=== PATIENT | female | born 1965 | race Caucasian/White ===

== ENCOUNTER → 2018-01-11 02:51 | Outpatient (CLI) | payer OTHER, SELFPAY ==
[2018-01-11 11:28] LABS: Anion Gap 5.8 mmol/L (3-11); BUN 12 mg/dL (7-18); CO2 30.2 mmol/L (21.0-32.0); CREATININE 0.74 mg/dL (0.55-1.02); Calcium 9.2 mg/dL (8.5-10.1); Chloride 104 mmol/L (98-107); Cholesterol 250 mg/dL (50-200); Glucose 95 mg/dL (70-100); HDL Cholesterol 60 mg/dL (40-60); LDL CHOLESTEROL 169 mg/dL (<100); Sodium 140 mmol/L (136-145); Triglyceride 134 mg/dL (30-150)
== END ==
PROVIDERS: PCP Family Medicine; Visit Provider Family Medicine
DX: Z00.00 Encounter for general adult medical examination without abnormal findings (principal); Z13.220 Encounter for screening for lipoid disorders; Z13.228 Encounter for screening for other metabolic disorders
CPT/HCPCS: 36415; 80048; 80061; 83721

== ENCOUNTER 2019-01-19 08:43 | Outpatient (CLI) | payer OTHER, SELFPAY ==
[2019-01-19 11:44] LABS: HCT 41.3 % (36.0-46.0); HGB 14.2 g/dL (12.0-15.5); Mean Corp. HGB Concentration 34.4 g/dL (32.0-36.0); Mean Corpuscular Hemoglobin 31.6 pg (27.0-33.0); Mean Corpuscular Volume 91.8 fL (80-95); Mean Platelet Volume 9.5 fL (8.0-11.0); Platelet Count 398 x1000/uL (130-400); RBC Distribution Width 15.3 % (11.7-14.6); White Blood Cell Count 12.62 k/cumm (4.4-10.8)
[2019-01-19 12:45] LABS: Anion Gap 10.3 mmol/L (3-11); BUN 13 mg/dL (7-18); CO2 24.7 mmol/L (21.0-32.0); CREATININE 0.71 mg/dL (0.55-1.02); Chloride 105 mmol/L (98-107); Glucose 77 mg/dL (70-100); Potassium 4.6 mmol/L (3.5-5.1); Sodium 140 mmol/L (136-145)
== END 2019-01-19 09:03 ==
PROVIDERS: PCP Family Medicine; Visit Provider Family Medicine
DX: Z79.1 Long term (current) use of non-steroidal anti-inflammatories (NSAID) (principal)
CPT/HCPCS: 36415; 80048; 85027

== ENCOUNTER 2019-04-06 09:13 | Day surgery (SDC) | payer OTHER, SELFPAY ==
[2019-04-06 09:20] VITALS: BP 133/86; PULSE 99; RESP 18; TEMP 36.6; O2SAT 97
[2019-04-06] MEDS: Lactated Ringers 1,000 ML 80 ML IV (09:58)
--- NOTE | 2019-04-06 10:56 | W.PM.DSUDISC ---
Discharge Plan Disposition Patient Disposition: HOME Condition: Good Discharge Details Reason For Visit: Colonoscopy Attending Provider: Sri Ceja Primary Care Provider: Tommy Brooke Home Meds and New Rx's Prescriptions: Discontinued polyethylene glycol 3350 17 gram/dose powder 238 g PO ONCE Qty: 238 RF: 0 bisacodyl [Dulcolax (bisacodyl)] 5 mg tablet,delayed release (DR/EC) 5 mg PO ONCE Qty: 4 RF: 0 No Action ibuprofen [Ibuprofen IB] 200 mg tablet 800 mg PO TID PRNRF: 0 venlafaxine 150 mg capsule,extended release 24hr 150 mg PO DAILY Qty: 90 RF: 4 clonazepam 0.5 mg tablet 0.5 mg PO TID Qty: 90 RF: 2 Discharge Instructions Additional Instructions: Findings: One small polyp was removed. My office will contact you with biopsy results. Follow up: Plan for a colonoscopy in 5 years. Please call if you develop: fevers >101.5 Nausea or Vomiting Abdominal pain that is not transient DAY SURGERY UNIT POST COLONOSCOPY INSTRUCTIONS 1. Because there will be medication in your system for the next 24 hours, you may feel a little sleepy. Your coordination will be affected. Therefore: a. Do not drive or operate dangerous equipment for 24 hours. b. Do not drink alcohol beverages for 24 hours (not even beer). c. Plan to go home and rest for the day. 2. Generally there are no restrictions on your activity after a day or so has gone by, but you may feel a bit fatigued for a few days. 3 After you arrive home you may have a light meal and return to a normal diet as you can tolerate it without feeling sick to your stomach. 4. After surgery, you may feel pain or discomfort. This should be only transient, but if it persists please contact your doctor. 5. If there are any questions regarding the findings of your procedure, please feel free to contact your doctor. 6. If you are unable to contact your doctor with a problem, contact the hospital at [phone]. 7. Continue all your regular medications unless directed otherwise. I understand the above instructions and have no questions. Signature of Patient or Responsible Adult Escort Date/Time Name of Responsible Adult Escort Signature of Nurse Date/Time Activity:: Activity as Tolerated Diet:: As Tolerated Discharge Orders Discharge Orders: Discharge Order (Routine); Ordered 04/06/19 Ordered By: Sri Ceja DS: Diagnosis Discharge Diagnosis (1) Colon polyp: Status: Acute (2) Diverticulosis: Status: Acute
--- NOTE | 2019-04-06 11:51 | BOWEL_PTH ---
PATIENT: Belem Kebede LOC: [facility] U#:[id number] AGE/SX: 54/F ROOM: RE04/06/[address]: Sri Ceja MD : [id number] BED: DIS: 04/06/2019 SPEC #: [id number] RECD: 04/06/19 12:56 STATUS: RONAK RE #: [id number] DEV: 04/06/19 11:[address]: Sri Ceja DEPT: Surgical Specimen RECD BY: Felicitas Carrasco ENTERED: 04/06/19 12:57 SP TYPE: Bowel OTHR DR: Tommy Brooke MD Tissues: 1 - BIOPSY BOWEL Procedures: GROSS AND MICRO LEVEL 4 Comments: [id number]
--- NOTE | 2019-04-06 12:13 | COLE_ITS ---
DATE OF PROCEDURE: April 06, 2019 PREOPERATIVE DIAGNOSIS: Screening. POSTOPERATIVE DIAGNOSIS: 1. Diverticulosis. 2. Sigmoid colon polyp. PROCEDURE: Colonoscopy with polypectomy. SURGEON: Sri Ceja M.D. ANESTHESIA: General. INDICATIONS: This is a 54-year-old woman who presents for her first screening colonoscopy. She is a symptomatic and has no close relatives with colon cancer. PROCEDURE: She was placed in the left Galloway position. Propofol was titrated to sedation. Digital re ctal examination revealed no abnormalities. The scope was advanced to the cecum without difficulty. Her prep was excellent. The ileocecal valve and appendiceal orifice were clearly identified. The s cope was slowly withdrawn with no abnormalities seen within the ascending, transverse or descending c olon. There was scattered diverticular change in the sigmoid region. At 30 cm in the sigmoid colon there was a flat, < 1 cm polyp that was removed with snare polypectomy and retrieved for pathology. A hemostatic clip was applied as a precaution. No other abnormalities were seen throughout the sigmo id colon or rectum, including on retroflex view. It was noted that she had some moderately prominent internal hemorrhoids and external hemorrhoids as well. She tolerated the procedure well and was sta ble to recovery. She will need a colonoscopy again in five years. cc: Tommy Brooke M.D.
[2019-04-06 12:30] VITALS: BP 134/77; PULSE 87; RESP 16; TEMP 36.6; O2SAT 95
== END 2019-04-06 13:10 | disposition home or self-care (01) ==
PROVIDERS: PCP Family Medicine; Visit Provider Surgery
PROC: 0DJD8ZZ Inspection of Lower Intestinal Tract, Via Natural or Artificial Opening Endoscopic (ICD-10-PCS; CPT 45378; principal; 2019-04-06 10:30)
DX: Z12.11 Encounter for screening for malignant neoplasm of colon (principal); K57.30 Diverticulosis of large intestine without perforation or abscess without bleeding; K63.5 Polyp of colon; F17.210 Nicotine dependence, cigarettes, uncomplicated
CPT/HCPCS: 45385; 88305; J2250; J3010

== ENCOUNTER 2019-11-30 08:11 | Outpatient (CLI) | payer OTHER, SELFPAY ==
[2019-12-02 17:43] LABS: COVID-19 RT-PCR Result NEGATIVE (Negative)
== END 2019-11-30 08:31 ==
PROVIDERS: PCP Family Medicine; Visit Provider Student in an Organized Health Care Education/Training Program
DX: Z11.59 Encounter for screening for other viral diseases (principal); G57.63 Lesion of plantar nerve, bilateral lower limbs
CPT/HCPCS: U0003

== ENCOUNTER 2019-12-04 06:15 | Day surgery (SDC) | payer OTHER, SELFPAY ==
[2019-12-04 06:38] VITALS: BP 115/72; PULSE 77; RESP 18; TEMP 36.7; O2SAT 95
[2019-12-04] MEDS: Lactated Ringers 1,000 ML 80 ML IV (07:00)
--- NOTE | 2019-12-04 07:13 | PDOC.DSDIS_ITS ---
Discharge Plan Disposition Patient Disposition: HOME Condition: Good Discharge Details Reason For Visit: Bilateral Orozco Neuroma Attending Provider: Lito Biswas Primary Care Provider: Tommy Brooke Home Meds and New Rx's Prescriptions: New hydrocodone-acetaminophen 5-325 mg tablet 1 tab PO Q4H PRN (Reason: pain) Qty: 12 RF: 0 aspirin 81 mg tablet,delayed release (DR/EC) 81 mg PO BID Qty: 60 RF: 0 acetaminophen 500 mg tablet 500 mg PO Q6H PRN PRN (Reason: pain) Qty: 90 RF: 3 docusate sodium [Colace] 100 mg capsule 100 mg PO BID PRNQty: 10 RF: 0 ibuprofen 600 mg tablet 600 mg PO TID PRNQty: 90 RF: 3 Continued hydroxyzine HCl 25 mg tablet 50 mg PO TID PRN (Reason: anxiety) Qty: 150 RF: 4 baclofen 10 mg tablet 20 mg PO TID Qty: 150 RF: 4 disulfiram 250 mg tablet 250 mg PO DAILY Qty: 30 RF: 4 venlafaxine 150 mg capsule,extended release 24hr 150 mg PO DAILY Qty: 90 RF: 4 venlafaxine 75 mg capsule,extended release 24hr 75 mg PO DAILY Qty: 90 RF: 4 clonazepam 0.5 mg tablet 0.5 mg PO TID Qty: 90 RF: 2 trazodone 50 mg tablet 50 mg PO QHS PRN (Reason: sleep) Qty: 30 RF: 2 Discontinued ibuprofen [Ibuprofen IB] 200 mg tablet 800 mg PO TID PRNRF: 0 Discharge Instructions Additional Instructions: Activity: You may weight bear as tolerated. You should keep the leg elevated as much as possible. You need to wear the post-op shoe when you are up and mobilizing, but may remove it when not and move your foot, ankle, and toes as tolerated. Use crutches for support and pain relief the first few days. Dressings: You should keep the initial dressing on for at least 3 days. After 3 days, you may remove it and get the wound wet in the shower. You can put a large bandaid back on this wound or leave it uncovered. The sutures are buried in the skin. Medications: - You should take Tylenol and Ibuprofen around the clock for baseline pain. - You have been prescribed a stronger narcotic, Hydrocodone, for breakthrough pain. 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
[2019-12-04] MEDS: ceFAZolin 2 GM/50 ML BAG IVPB (07:23)
[2019-12-04 09:10] VITALS: BP 113/74; PULSE 75; RESP 16; TEMP 36.5; O2SAT 95
[2019-12-04] MEDS: HYDROcodone 5/Acetaminophen 325 TAB PO (09:10)
--- NOTE | 2019-12-04 10:35 | ROE_ITS ---
Date of service: 12/04/19 Time of Service: 08:35 Operative Note Operative Note DATE OF PROCEDURE: 12/04/19 PRE-OP DIAGNOSIS: Bilateral Orozco's Neuroma POST-OP DIAGNOSIS: same PROCEDURE: Bilateral 3rd interspace neurectomy with IM ligament release for Orozco's Neuroma SURGEON: Lito Biswas ANESTHESIA: spinal ESTIMATED BLOOD LOSS: 5 PATHOLOGY: none sent TOURNIQUET TIME: 0 COMPLICATIONS: None Patient was transported to: same day Patient's condition: stable Indications: Belem is a 54yo female who I have seen for persistent pain of the 3rd interspace of the forefoot of both feet radiating into the 3rd and 4th toes. She has had multiple injections and other conservative treatements in the past. Given the failure of the conservative options, I recommended surgical treatment. I discussed the technical details of the surgery. I reviewed the risks such as bleeding, infection, pain, stiffness, persistent numbness, neuroma, pain. I discussed the necessary time for rehabilitation. Despite these risks, Belem agreed to proceed. Findings: There is notable swelling of the common digital nerve the third interspace. No classic, rounded neuroma was appreciated. There was bursitis and inflammation seen around the nerve and around the intermetatarsal ligament. The ligament was transected and the nerve was removed. Procedure Description: Belem was greeted in the preoperative area. Consent was previously reviewed and signed. Once in the operating room, anesthesia was administered. The patient was transferred to the fracture table in the supine position. Belem was positioned in the supine position. All bony prominences were well padded. Arms were placed out to the side, padded, and secured. Prophylactic antibiotics, Cefazolin 2 grams, was given for prophylactic antibiotics. A timeout was performed for safe surgery. Both leg were prepped with Chloraprep. The leg were draped with a bilateral extremity drape. Both wounds were marked within the third interspace, approximate 3 cm, and injected with 0.25% ropivacaine with epinephrine. Starting with the left foot, incision was made through skin. Blunt dissection was done with a finger and with tenotomy scissors making sure to respect any branches of superficial nerves. The space between the third and fourth metatarsal heads was identified and a lamina broadcast transmitter operator was placed. There is some notable inflammatory tissue around this area. The intermetatarsal ligament was identified and then was then incised with a #15 blade. There was notable inflammatory tissue in this area. Once this was released the nerve was visible. There is some noted irritation to the nerve and there is some swelling to the nerve. The nerve was followed to its bifurcation. It was transected distal to the bifurcation. Holding the nerve traction was applied. Plantar branches were resected. The nerve was followed up into the foot and then transected sharply, quite proximal to the metatarsal head. The wound was then thoroughly irrigated. The wound was closed with #4-0 nylon in interrupted fashion. Attention was then turned to the right foot. An incision was made through skin at the third interspace. Blunt dissection was done with a finger and with tenotomy scissors making sure to respect any branches of superficial nerves. The space between the third and fourth metatarsal heads was identified and a lamina broadcast transmitter operator was placed. Once again, there is some inflammatory tissue seen around the intermetatarsal ligament and just proximal to it. The intermetatarsal ligament was identified and then was then incised with a #15 blade. There was notable inflammatory tissue in this area. Once this was released the nerve was visible. There is some noted irritation to the nerve and there is some swelling to the nerve. The nerve was followed to its bifurcation. It was transected distal to the bifurcation. Holding the nerve traction was applied. Plantar branches were resected. The nerve was followed up into the foot and then transected sharply, quite proximal to the metatarsal head. The wound was then thoroughly irrigated. The wound was closed with #4-0 nylon in interrupted fashion. At the end of the case, all counts were correct. Belem tolerated the procedure well without known complication and was taken to the PACU for recovery.
== END 2019-12-04 10:55 | disposition home or self-care (01) ==
PROVIDERS: PCP Family Medicine; Visit Provider Student in an Organized Health Care Education/Training Program
PROC: (CPT 28080; principal; 2019-12-04 07:30)
DX: G57.63 Lesion of plantar nerve, bilateral lower limbs (principal)
CPT/HCPCS: 28080 ×2; E0114; J0690; J1100; J1885; J2001; J2250; J2405; J3010

== ENCOUNTER 2020-05-05 15:45 | Outpatient (CLI) | payer OTHER, SELFPAY ==
--- NOTE | 2020-05-05 14:15 | DI.RAD_ITS ---
EXAM: XR KNEE RT 2V AP,LAT and XR knee LT 3 V CLINICAL HISTORY: R knee pain. TECHNIQUE: 2D digital imaging was performed. COMPARISON: No previous for comparison. FINDINGS: In the right knee, there is periarticular spurring in the medial lateral femoral tibial joints. Ther e is marked narrowing of the lateral patellofemoral joint. There is an osseous density at the anteri or aspect of the joint space which may represent a loose body. No joint effusion is seen the soft ti ssues are unremarkable. No acute fracture or dislocation. In the left knee there is periarticular spurring in the medial and lateral femoral tibial joint. The re is also marked narrowing of the lateral patellofemoral joint. Osteophytes are seen at the posteri or patella. No acute fracture or dislocation. IMPRESSION: Moderately severe degenerative changes of the knees bilaterally. The findings are most marked in the patellofemoral joints. DATA REPOSITORY: RADIATION DOSE DELIVERED:
== END 2020-05-05 16:05 ==
PROVIDERS: PCP Nurse Practitioner; Visit Provider Student in an Organized Health Care Education/Training Program
DX: M17.0 Bilateral primary osteoarthritis of knee (principal)
CPT/HCPCS: 73562; 73560

== ENCOUNTER 2020-05-14 01:04 | Outpatient (CLI) | payer OTHER, SELFPAY ==
--- NOTE | 2020-05-14 07:30 | DI.MAMMO_ITS ---
EXAM: MG MAMMO SCREENING CLINICAL HISTORY: screening,Z12.39 TECHNIQUE: Mammograms were interpreted according to the usual protocol including computer analysis w [employer] CAD system, tomosynthesis and C-view imaging. COMPARISON: FINDINGS: The breasts are of moderate density with fairly symmetrical distribution fibroglandular tissue. No d ominant mass or clumped microcalcification is identified in either breast. The current examination i s compared with previous examinations including August 2017 and there has been no gross interval cueto e in appearance in comparison with the prior studies. IMPRESSION: No specific evidence of malignancy at this time. Routine screening examinations are suggested at yea rly intervals in this age group according to the ACS ACR guidelines. BI-RADS Category 1 - Negative Breast Density - Category B - Scattered areas of fibroglandular density
== END 2020-05-14 01:24 ==
PROVIDERS: PCP Nurse Practitioner; Visit Provider Nurse Practitioner
DX: Z12.31 Encounter for screening mammogram for malignant neoplasm of breast (principal)
CPT/HCPCS: 77063; 77067

== ENCOUNTER 2020-05-26 19:18 | Outpatient (REF) | payer OTHER, SELFPAY ==
[2020-05-27 21:48] LABS: COVID-19 RT-PCR Result NEGATIVE (Negative)
== END 2020-05-26 19:38 ==
LOC: NCHCN 19:18
PROVIDERS: PCP Nurse Practitioner; Visit Provider Nurse Practitioner Family
DX: Z11.52 Encounter for screening for COVID-19 (principal)
CPT/HCPCS: U0003

== ENCOUNTER 2021-01-05 02:07 | Outpatient (CLI) | payer OTHER, SELFPAY ==
[2021-01-05 11:16] LABS: Source Nasal/Nares
[2021-01-05 16:33] LABS: COVID-19 PCR Negative (Negative)
== END 2021-01-05 02:08 | disposition home or self-care (01) ==
LOC: LBO 02:07
PROVIDERS: PCP Nurse Practitioner; Visit Provider Student in an Organized Health Care Education/Training Program
DX: Z20.822 Contact with and (suspected) exposure to COVID-19 (principal); Z01.818 Encounter for other preprocedural examination
CPT/HCPCS: 87635

== ENCOUNTER 2021-01-05 02:47 | Outpatient (CLI) | payer OTHER, SELFPAY ==
[2021-01-05 08:47] LABS: HCT 39.9 % (36.0-46.0); HGB 13.3 g/dL (11.2-15.7); MCH 30.4 pg (27.0-33.0); MCHC 33.3 % (32.0-36.0); MCV 91.1 fL (80-95); MPV 9.2 fL (8.0-11.0); Platelet Count 303 10^3/uL (130-400); RBC 4.38 10^6/uL (3.93-5.22); RDW 13.8 % (11.7-14.6); RDW-SD 46.7 fL; WBC 7.46 10^3/uL (4.4-10.8)
[2021-01-05 09:30] LABS: Anion Gap 7.9 mmol/L (3-11); BUN 11 mg/dL (7-18); CO2 28.1 mmol/L (21.0-32.0); CREATININE 0.8 mg/dL (0.55-1.02); Chloride 106 mmol/L (98-107); Glucose 100 mg/dL (74-106); Potassium 4.6 mmol/L (3.5-5.1); Sodium 142 mmol/L (136-145)
[2021-01-05 09:35] LABS: Calculated LDL 189 mg/dL (<100); Cholesterol 263 mg/dL (<200); HDL Cholesterol 55 mg/dL (40-60); Triglyceride 97 mg/dL (<150)
== END 2021-01-05 02:48 | disposition home or self-care (01) ==
LOC: LBO 02:47
PROVIDERS: Family Medicine; PCP Nurse Practitioner; Visit Provider Student in an Organized Health Care Education/Training Program
DX: M25.561 Pain in right knee (principal); M25.562 Pain in left knee; M17.0 Bilateral primary osteoarthritis of knee; Z01.818 Encounter for other preprocedural examination; Z01.812 Encounter for preprocedural laboratory examination
CPT/HCPCS: 36415; 80048; 80061; 85027

== ENCOUNTER 2021-01-07 05:58 | Day surgery (SDC) | payer OTHER, SELFPAY ==
[2021-01-07] VITALS (10 sets, daily range): BP systolic 112–158; BP diastolic 44–91; PULSE 73–95; RESP 11–18; TEMP 36.2–36.6; O2SAT 93–98; BMI 31.4
[2021-01-07] MEDS: Celecoxib 200 MG CAP 400 MG PO (06:29)
[2021-01-07] MEDS: Lactated Ringers 1,000 ML 80 ML IV (06:30)
[2021-01-07] MEDS: Gabapentin 300 MG CAP PO (06:30)
[2021-01-07] MEDS: Acetaminophen 500 MG TAB 1000 MG PO ×2 (06:30→14:53)
--- NOTE | 2021-01-07 07:00 | W.ANESPRE ---
General Info Date of Service Date Performed: 01/07/21 Height: 5 ft 7 in Weight: 91.2 kg Body Mass Index (BMI): 31.4 Surgical Procedure: Operation Date: 01/07/21 08:00 Proposed Procedures Side Surgeon p Knee Patellofemoral Replacement Bilateral Lito Biswas MD Meds Allergies and Home Medications Allergies Allergy/AdvReac Type Severity Reaction Status Date / Time aspirin AdvReac Intermediate Ringing in Verified 01/07/21 05:54 ears Home Medication Medication Instructions Recorded ibuprofen 600 mg PO TID PRN #90 tab 12/04/19 trazodone 50 mg tablet 100 mg PO QHS PRN #90 tab 09/05/20 clonazepam 0.5 mg tablet 0.5 mg PO BID #60 tab 09/25/20 disulfiram 250 mg tablet 250 mg PO DAILY #90 tab 10/16/20 baclofen 10 mg tablet 20 mg PO TID PRN #90 tab 11/18/20 venlafaxine 150 mg 150 mg PO DAILY #90 tab-cap 12/02/20 capsule,extended release 24 hr venlafaxine 75 mg capsule,extended 75 mg PO DAILY #90 cap 12/02/20 release 24 hr hydroxyzine HCl 25 mg tablet 50 mg PO TID PRN #150 tab 12/25/20 Current Visit Medications: Current Medications Generic Name Dose Route Start Last Admin Trade Name Freq PRN Reason Stop Dose Admin Acetaminophen 1,000 mg 01/07/21 06:00 01/07/21 06:30 Acetaminophen 500 Mg Tab PO 01/07/21 16:00 1,000 mg PREOP MANNY Administration Celecoxib 400 mg 01/07/21 06:00 01/07/21 06:29 Celecoxib 200 Mg Cap PO 01/07/21 16:00 400 mg PREOP MANNY Administration Gabapentin 300 mg 01/07/21 06:00 01/07/21 06:30 Gabapentin 300 Mg Cap PO 01/07/21 16:00 300 mg PREOP MANNY Administration Tranexamic Acid 1,000 mg/ 60 mls @ 360 mls/hr 01/07/21 06:00 Sodium Chloride IVPB 01/07/21 16:00 PREOP MANNY Tranexamic Acid 1,000 mg/ 60 mls @ 360 mls/hr 01/07/21 06:00 Sodium Chloride IVPB 01/07/21 16:00 DIRECTED MANNY Ringer's Solution 1,000 mls @ 80 mls/hr 01/07/21 06:00 01/07/21 06:30 IV 02/05/21 23:59 80 mls/hr INFUSION MANNY Administration Cefazolin Sodium 2,000 mg/ 100 mls @ 200 mls/hr 01/07/21 06:00 Sodium Chloride IVPB 01/07/21 23:59 PREOP MANNY IV Miscellaneous Supplies 1 each 01/07/21 06:00 Iv Access IV 02/05/21 23:59 DIRECTED MANNY Sodium Chloride 0 ml 01/07/21 06:00 Normal Saline Flush 10 Ml Syr IV 02/05/21 23:59 PRN PRN Sodium Chloride 0 ml 01/07/21 06:00 Normal Saline 10 Ml Vial IJ 02/05/21 23:59 DIRECTED PRN Sterile Water 0 ml 01/07/21 06:00 Water,Injection,Sterile 10 Ml Vial IJ 02/05/21 23:59 DIRECTED PRN PFSH Active Problems Active Problems: Problem Status Onset Code Anxiety F41.9 Chronic post-traumatic stress disorder F43.12 Depressive disorder F32.9 Smoker F17.200 Colon polyp K63.5 Diverticulosis K57.90 Hyperlipidemia E78.5 Patellofemoral arthritis of left knee M17.12 Patellofemoral arthritis of right knee M17.11 Status post excision of Orozco's neuroma 12/04/19 Z98.890, Z86.69 Osteoarthritis of right knee M17.11 Osteoarthritis of left knee M17.12 Medical History Medical History (Updated 01/07/21 @ 06:09 by Gege Cox) Anxiety Depression Grade II hemorrhoids (02/10/17) History of alcoholism MERARY on CPAP Osteoarthritis of left knee Osteoarthritis of right knee PTSD (post-traumatic stress disorder) Surgical History Surgical History H/O colonoscopy (~03/2019) Hyperplastic polyp. H/O hysterectomy with oophorectomy History of arthroscopic knee surgery Bilateral Rotator Cuff Repair (~1999) right Status post excision of Orozco's neuroma (12/04/19) Tobacco Smoking/Tobacco Use Status: Current-Occasional Tobacco Type: cigarettes Years smoked: 20 Quit Status: has quit before Second hand exposure: Yes Alcohol Alcohol Intake: former Substance Use Substance use: Never Substance use type: does not use Vital Signs and Lab Results Vital Signs Most Recent Vital Signs in EMR: Most Recent Vital Signs Temp Pulse Resp BP Pulse Ox 36.6 C 84 18 112/44 L 94 01/07/21 06:00 01/07/21 06:00 01/07/21 06:00 01/07/21 06:00 01/07/21 06:00 Lab Results Blood Type / Crossmatch: No Data to Display Complete Blood Count: White Blood Count 7.46 10^3/uL (4.4-10.8) 01/05/21 08:33 01/05/21 Red Blood Count 4.38 10^6/uL (3.93-5.22) 01/05/21 08:01/05/21 Hemoglobin 13.3 g/dL (11.2-15.7) 01/05/21 08:01/05/21 Hematocrit 39.9 % (36.0-46.0) 01/05/21 08:01/05/21 Platelet Count 303 10^3/uL (130-400) 01/05/21 08:33 01/05/21 Complete Metabolic Panel: Sodium Level 142 mmol/L (136-145) 01/05/21 08:33 01/05/21 Potassium Level 4.6 mmol/L (3.5-5.1) 01/05/21 08:33 01/05/21 Chloride Level 106 mmol/L (98-107) 01/05/21 08:33 01/05/21 Carbon Dioxide Level 28.1 mmol/L (21.0-32.0) 01/05/21 08:33 01/05/21 Blood Urea Nitrogen 11 mg/dL (7-18) 01/05/21 08:33 01/05/21 Creatinine 0.8 mg/dL (0.55-1.02) 01/05/21 08:33 01/05/21 Estimated GFR/1.73 m2 >= 60.00 (mL/min/1.73m2) 01/05/21 08:33 01/05/21 Calcium Level 9.0 mg/dL (8.5-10.1) 01/05/21 08:33 01/05/21 Glucose Level 100 mg/dL (74-106) 01/05/21 08:33 01/05/21 Liver Function Panel: No Data to Display Coagulation Panel: No Data to Display Cardiac Panel: No Data to Display Arterial Blood Gas: No Data to Display Venous Blood Gas: No Data to Display Pancreas Panel: No Data to Display Thyroid Panel: No Data to Display Infectious Disease: Coronavirus (COVID-19)(PCR) Negative (Negative) 01/05/21 08:46 01/05/21 Coronavirus 2019 Source Nasal/Nares 01/05/21 08:46 01/05/21 Blood Cultures: No Data to Display Toxicology Panel: No Data to Display Anesthesia Assessment and Plan Anesthesia History Personal History: No History of Anesthesia Complications Family History: No Family History of Anesthesia Complications Exercise Tolerance Exercise Tolerance: Metabolic Equivalents>4 Pertinent Negatives Pertinent Negatives: No Symptoms of GERD, No Major Cardiovascular Symptoms or Complaints and No Major Pulmonary Symptoms or Complaints Cardiac & Pulmonary Exam Cardiac Exam: Normal S1/S2 Heart Sounds Pulmonary Exam: Clear Bilateral Breath Sounds Airway Exam Known Difficult Airway: No Mallampati Class: 2 Mouth Opening: Normal (> 3cm) Thyromental Distance: Greater than 3 cm Neck Range of Motion: Full ROM Neck Circumference: Normal Teeth Condition: Normal Dentition ASA Classification ASA Score: ASA 2 Emergency Case?: No NPO Status NPO Status: NPO Clears >2 hours, Solids >8 hours Anesthesia Plan Resuscitation Status: Full Code Anesthesia Technique: General Anesthesia Airway Planned: LMA Pain Management: Surgeon and patient request nerve block Monitors Used: Standard Monitors
--- NOTE | 2021-01-07 07:23 | PDOC.DSDIS_ITS ---
Documented by User: ANNA Rendon 01/07/21 07:30 Discharge Plan Disposition Patient Disposition: HOME Condition: Stable Discharge Details Reason For Visit: bilateral patellofemoral replacements Attending Provider: Lito Biswas Primary Care Provider: Cristy Augustine Home Meds and New Rx's Prescriptions: New celecoxib [Celebrex] 200 mg capsule 200 mg PO BID Qty: 60 RF: 0 aspirin 81 mg tablet,delayed release (DR/EC) 81 mg PO BID Qty: 60 RF: 0 acetaminophen [Tylenol Extra Strength] 500 mg tablet 500 mg PO Q6H PRNQty: 90 RF: 0 pantoprazole [Protonix] 40 mg tablet,delayed release (DR/EC) 40 mg PO DAILY Qty: 30 RF: 0 gabapentin 300 mg capsule 300 mg PO QHS Qty: 14 RF: 0 oxycodone 5 mg tablet 5 mg PO Q4H PRNQty: 18 RF: 0 Continued trazodone 50 mg tablet 100 mg PO QHS PRN (Reason: sleep) Qty: 90 RF: 3 clonazepam 0.5 mg tablet 0.5 mg PO BID Qty: 60 RF: 5 disulfiram 250 mg tablet 250 mg PO DAILY Qty: 90 RF: 4 baclofen 10 mg tablet 20 mg PO TID PRN (Reason: muscle spasm) Qty: 90 RF: 3 venlafaxine 75 mg capsule,extended release 24hr 75 mg PO DAILY Qty: 90 RF: 4 venlafaxine 150 mg capsule,extended release 24hr 150 mg PO DAILY Qty: 90 RF: 4 hydroxyzine HCl 25 mg tablet 50 mg PO TID PRN (Reason: anxiety) Qty: 150 RF: 4 Discontinued ibuprofen 600 mg tablet 600 mg PO TID PRNQty: 90 RF: 3 Discharge Instructions Additional Instructions: Patellofemoral Replacement Discharge Instructions Activity: The most important activity is to walk. You should try to take short walks a few times a day. It is important that when resting you work on keeping the knee straight. Avoid putting a pillow behind the knee as this will encourage flexion. Work on range of motion exercises as provided by Physical Therapy. - Start outpatient physical therapy within 2 weeks. - You should wear the JOHANN hose on both legs for 2 weeks. You may remove these at night. You may also use any compression sock in place of the JOHANN hose. Dressing: You may remove the Martin wrap on your leg 2 days after your surgery and put on the JOHANN stocking given to you from the hospital. Keep the surgical dressing (underneath the MARTIN wrap) in place for at least one week. After the first week it may be removed and replaced with light gauze and tape or nothing. The wound and dressing may get wet after 3 days but avoid soaking the dressing or otherwise it will need to be changed. Many people prefer covering the dressing with cling wrap (saran wrap) to minimize it from getting soaked. If it gets wet, just pat dry. If it starts to peel off then it will need to be changed. Medications: - You should take Tylenol and anti-inflammatory Celebrex as your primary pain control medications. If the Celebrex is too expensive or not covered, please call the office for another alternative (Advil/Ibuprofen or Naproxen/Aleve) - You have been prescribed a stronger pain medication Oxycodone for breakthrough pain, take as needed as prescribed. - You have also been prescribed a stomach acid reduction agent Pantoprozole to help reduce stomach acid and reflux. - You have been prescribed Gabapentin to take at night for restlessness and nerve pain. - You will be taking Aspirin 81mg twice a day for DVT prevention unless instructed otherwise. - If you have constipation you should take Colace or Miralax (both [id number]). It takes most people 3-4 days to have a bowel movement. Follow-up: 2 weeks If you have any acute concerns or questions, please do not hesitate to contact the office at [phone]. You may contact Dr. Biswas with any questions after hours through the hospital at [phone] or on his cell phone at [phone]. Stand Alone Forms: Anesthesia Discharge Inst., Devaughn ePrez ([facility]) Referrals: Lito Biswas MD [ [facility] STAFF PHYSICIAN] - Equipment/Supplies: Walker Activity:: Activity as Tolerated Remove Dressings/Wound Care:: Do Not Remove Shower/Bathe:: 72 hours Diet:: As Tolerated Discharge Orders Discharge Orders: Discharge Order (Routine); Ordered 01/07/21 Ordered By: Lito Biswas DS: Diagnosis Discharge Diagnosis (1) Patellofemoral arthritis of left knee: Status: Acute (2) Patellofemoral arthritis of right knee: Status: Acute Documented by User: Lito Biswas MD 01/07/21 14:39 Discharge Plan Disposition Patient Disposition: HOME Condition: Stable Discharge Details Reason For Visit: bilateral patellofemoral replacements Attending Provider: Lito Biswas Primary Care Provider: Cristy Augustine Home Meds and New Rx's Prescriptions: New celecoxib [Celebrex] 200 mg capsule 200 mg PO BID Qty: 60 RF: 0 aspirin 81 mg tablet,delayed release (DR/EC) 81 mg PO BID Qty: 60 RF: 0 acetaminophen [Tylenol Extra Strength] 500 mg tablet 500 mg PO Q6H PRNQty: 90 RF: 0 pantoprazole [Protonix] 40 mg tablet,delayed release (DR/EC) 40 mg PO DAILY Qty: 30 RF: 0 gabapentin 300 mg capsule 300 mg PO QHS Qty: 14 RF: 0 oxycodone 5 mg tablet 5 mg PO Q4H PRNQty: 18 RF: 0 Continued trazodone 50 mg tablet 100 mg PO QHS PRN (Reason: sleep) Qty: 90 RF: 3 clonazepam 0.5 mg tablet 0.5 mg PO BID Qty: 60 RF: 5 disulfiram 250 mg tablet 250 mg PO DAILY Qty: 90 RF: 4 baclofen 10 mg tablet 20 mg PO TID PRN (Reason: muscle spasm) Qty: 90 RF: 3 venlafaxine 75 mg capsule,extended release 24hr 75 mg PO DAILY Qty: 90 RF: 4 venlafaxine 150 mg capsule,extended release 24hr 150 mg PO DAILY Qty: 90 RF: 4 hydroxyzine HCl 25 mg tablet 50 mg PO TID PRN (Reason: anxiety) Qty: 150 RF: 4 Discontinued ibuprofen 600 mg tablet 600 mg PO TID PRNQty: 90 RF: 3 Discharge Instructions Additional Instructions: Patellofemoral Replacement Discharge Instructions Activity: The most important activity is to walk. You should try to take short walks a few times a day. It is important that when resting you work on keeping the knee straight. Avoid putting a pillow behind the knee as this will encourage flexion. Work on range of motion exercises as provided by Physical Therapy. - Start outpatient physical therapy within 2 weeks. - You should wear the JOHANN hose on both legs for 2 weeks. You may remove these a t night. You may also use any compression sock in place of the JOHANN hose. Dressing: You may remove the Martin wrap on your leg 2 days after your surgery and put on the JOHANN stocking given to you from the hospital. Keep the surgical dressing (underneath the MARTIN wrap) in place for at least one week. After the first week it may be removed and replaced with light gauze and tape or nothing. The wound and dressing may get wet after 3 days but avoid soaking the dressing or otherwise it will need to be changed. Many people prefer covering the dressing with cling wrap (saran wrap) to minimize it from getting soaked. If it gets wet, just pat dry. If it starts to peel off then it will need to be changed. Medications: - You should take Tylenol and anti-inflammatory Celebrex as your primary pain control medications. If the Celebrex is too expensive or not covered, please call the office for another alternative (Advil/Ibuprofen or Naproxen/Aleve) - You have been prescribed a stronger pain medication Oxycodone for breakthrough pain, take as needed as prescribed. - You have also been prescribed a stomach acid reduction agent Pantoprozole to help reduce stomach acid and reflux. - You have been prescribed Gabapentin to take at night for restlessness and nerve pain. - You will be taking Aspirin 81mg twice a day for DVT prevention unless instruc johann otherwise. - If you have constipation you should take Colace or Miralax (both [id number]). It takes most people 3-4 days to have a bowel movement. Follow-up: 2 weeks If you have any acute concerns or questions, please do not hesitate to contact the office at [phone]. You may contact Dr. Biswas with any questions after hours through the hospital at [phone] or on his cell phone at [phone]. Stand Alone Forms: Anesthesia Discharge Inst., Devaughn Perez ([facility]) Referrals: Lito Biswas MD [ [facility] STAFF PHYSICIAN] - Equipment/Supplies: Walker Activity:: Activity as Tolerated Remove Dressings/Wound Care:: Do Not Remove Shower/Bathe:: 72 hours Diet:: As Tolerated Discharge Orders Discharge Orders: Discharge Order (Routine); Ordered 01/07/21 Ordered By: Lito Biswas
[2021-01-07] MEDS: ceFAZolin 2,000 MG in Normal Saline 100 ML 200 MG IVPB (07:51)
[2021-01-07] MEDS: Bupivacaine 0.25% Pres-Free 30 ML VIAL (08:20)
[2021-01-07] MEDS: Ketorolac 30 MG/ML VIAL (08:20)
--- NOTE | 2021-01-07 08:21 | W.ANESNERVE ---
Nerve Block Single Injection Procedure Date and Time Date Performed: 01/07/21 Procedure Start: 07:30 Location Where Procedure Performed Procedure Location: PACU Reason Performed: Postoperative Analgesia Requesting Provider: Lito Biswas Timeout Performed Timeout Performed: Yes Monitoring Used ECG, Blood Pressure and SpO2 Sterility Sterility: Hand Hygiene, Surgical Cap, Surgical Mask, Sterile Gloves and Chlorhexidine Sedation Given During Procedure Sedation Given (Indicate Dose Given): Versed IV Dose:: 2mg and Precedex IV Dose:: 12mcg Patient Mental Status Patient Mental Status: Awake Nerve Block 1st Nerve Block: Laterality: Bilateral Block Type: Adductor Canal Needle / Catheter Used: 100mm SonoPlex II Local Anesthetic Bolus (Indicate Dose Given): Lidocaine used for local infiltration of skin, Injected in 3-5ml increments after negative blood aspiration, Half of Total block solution given into each side and Bupivacaine 0.25% Dose:: 30ml Additives (Indicate Dose Given): None Ultrasound: Sterile probe cover and gel used Ultrasound Image Saved?: Yes Nerve Stimulator: Not Used Paresthesia: None Procedure Tolerated: No Complications and Patient tolerated well Procedure Outcome: Successful Performed By: Hermilo Merlos
[2021-01-07] MEDS: fentaNYL 100 MCG/2 ML VIAL IVP ×2 (10:23→10:28)
--- NOTE | 2021-01-07 10:25 | ROE_ITS ---
Date of service: 01/07/21 Time of Service: 10:02 Operative Note Operative Note DATE OF PROCEDURE: 01/07/21 PRE-OP DIAGNOSIS: Bilateral Patellofemoral Arthritis POST-OP DIAGNOSIS: same PROCEDURE: Bilateral Patlleofemoral Replacement SURGEON: Lito Biswas FORM TAMPING MACHINE OPERATOR: Kateryna Renner ANESTHESIA TYPE: General LMA/ETT Refer to Anesthesia Record ESTIMATED BLOOD LOSS: 100 PATHOLOGY: none sent TOURNIQUET TIME: 0 COMPLICATIONS: None Patient was transported to: PACU Patient's condition: stable Implants: RIGHT: 1. Arthrosurface Wave Trochlear Component, 7.5x5mm 2. Depuy Attune Patellar Button, 35mm LEFT: 1. Arthrosurface Wave Trochlear Component, 7.5x5mm 2. Depuy Attune Patellar Button, 35mm Indications: Belem is a 56 year old female who has had symptoms of bilateral patellofemoral arthritis. Conservative measures have been exhausted yet pain and dysfunction persisted. Please see office notes for complete details. Given the continued symptoms, I recommended a patellofemoral replacement. Since both sides hurt equally and were similar on radiographs, I recommended a bilateral procedure. I reviewed the risks of the procedure to include bleeding, infection, pain, stiffness, worsening medial or lateral compartment arthritis, patellar instability, loosening, fracture, clot. Despite these risks, Belem elected to proceed. Findings: There was notable arthritic change within the patellofemoral compartment, especially over the lateral trochlear, bilaterally. There osteophytes seen along the medial and lateral, distal femur. Procedure Description: Belem was greeted in the preoperative holding area where the correct side was identified and marked. The consent was reviewed with the patient and signed. The history and physical was updated. All questions were answered. Preoperative mediacations were administered: Acetaminophen 1000mg, Celebrex 400mg, and Gabapentin 300mg. An adductor canal block was then administered by the anesthesia team in the PACU. Belem was taken back to the operating room. A general anesthestic was then administered. The patient was placed into the supine position on the operating room table. A nonsterile tourniquet was placed high onto the leg but not used. Posts were placed for positioning during the procedure. All bony prominences were well padded. Prophylactic antibiotics in the form of Cefazolin were administered. 1g of Tranxemic Acid was given intravenously within 30 minutes of incision. Both legs were then prepped with Chloraprep and draped in a standard fashion with impervious stockinette and extremity drape. A timeout to confirm correct identity, side and site, procedure, allergies, anesthesia, and medical concerns was performed. RIGHT KNEE: Starting with the right knee, a second prep with Chloraprep was performed prior to placing Ioband. With the knee in some flexion, a midline incision was made overlying the knee. Full thickness skin flaps were raised once the extensor mechanism was encountered. These were raised medially and laterally. Any bleeding was controlled with electrocautery. Once the extensor mechanism was fully exposed, a medial parapatellar arthrotomy was performed in a flexed position. All bleeding from the arthrotomy and the geniculate arteries was coagulated. The menisci and intrameniscal ligament was preserved. The Arthrosurface patellofemoral trial was then placed in the appropriate position and a single guidewire was placed through the center of this device. T his was confirmed to be in appropriate location using the targeting arm. The trochlea was then sized in both directions corresponding to an 7.5x5. The initial reamer was then placed and taken down to appropriate depth. The reaming and drill guide was then placed within this recess and secured with pins. Using both the centralized reamer and the edge reamer, the trochlear recess was prepared. The guide was removed and the edges were curetted for completeness. The central hole was then prepared with a drill and a tap. The outer surface screw was then inserted to the premeasured depth. The 7.5x5mm patellofemoral Wave trochlear component by Arthrosurface was then malleted into position sitting flush over the lateral and proximal lateral aspect. The knee was held in extension and the patella was measured as 20 mm. Using the patellar clamp and cut guide, this was resected to a flat surface with at least 13mm of thickness remaining. The size 35 patella fit the best. This was orien juan and then clamped into position. The lugs were drilled. High viscosity cement was prepared on the back table under vacuum preparation. During this process, the knee was then injected with a periarticular cocktail consisting of half of 50 cc of 0.25% bupivacaine, 30 mg ketorolac, and 50 cc of normal saline. This was injected into the subcutaneous tissues, arthrotomy site, and deep periosteal tissues. Once the cement was ready, cement was manually impacted into the cut surface of the patella and the patellar button was clamped into position and held. During this process attention was turned to the gutters of the knee and for all interfaces for any excess cement. While the cement was hardening, the knee was irrigated with Irrisept chlorhexadine solution. It was allowed to sit in the knee for 3 minutes. After the cement had finally cured, approximately 15min, the clamp was removed from the patella and the knee was taken through range of motion. The capsule was then reapproximated with a No. 1 Vicryl. The second dosing of 1g TXA was started. At this point, I turned my attention to the left knee and the assisting physician respiratory care assistant completed the closure. The deep tissues were then reapproximated with 0 Vicryl and 2-0 Vicryl. The skin was closed with a running 3-0 Monocryl in a subcuticular fashion. This was reinforced with skin glue. A Mepilex silver dressing was applied. LEFT KNEE: Moving to the left knee, a second prep with Chloraprep was performed followed by Ioband once dry. With the knee in some flexion, a midline incision was made overlying the knee. Full thickness skin flaps were raised once the extensor mechanism was encountered. These were raised medially and laterally. Any bleeding was controlled with electrocautery. Once the extensor mechanism was fully exposed, a medial parapatellar arthrotomy was performed in a flexed position. All bleeding from the arthrotomy and the geniculate arteries was coagulated. The menisci and intrameniscal ligament was preserved. The Arthrosurface patellofemoral trial was then placed in the appropriate position and a single guidewire was placed through the center of this device. This was confirmed to be in appropriate location using the targeting arm. The trochlea was then sized in both directions corresponding to an 7.5x5. The initial reamer was then placed and taken down to appropriate depth. The reaming and drill guide was then placed within this recess and secured with pins. Using both the centralized reamer and the edge reamer, the trochlear recess was pr epared. The guide was removed and the edges were curetted for completeness. The central hole was then prepared with a drill and a tap. The outer surface screw was then inserted to the premeasured depth. The 7.5x5mm patellofemoral Wave trochlear component by Arthrosurface was then malleted into position sitting flush over the lateral and proximal lateral aspect. The knee was held in extension and the patella was measured as 21 mm. Using the patellar clamp and cut guide, this was resected to a flat surface with at least 13mm of thickness remaining. The size 35 patella fit the best. This was oriented and then clamped into position. The lugs were drilled. High viscosity cement was prepared on the back table under vacuum preparation. During this process, the knee was then injected with a periarticular cocktail consisting of the remaining half of 50 cc of 0.25% bupivacaine, 30 mg ketorolac, and 50 cc of normal saline. This was injected into the subcutaneous tissues, arthrotomy site, and deep periosteal tissues. Once the cement was ready, cement was manually impacted into the cut surface of the patella and the patellar button was clamped into position and held. During this process attention was turned to the gutters of the knee and for all interfaces for any excess cement. While the cement was hardening, the knee was irrigated with Irrisept chlorhexadine solution. It was allowed to sit in the knee for 3 minutes. After the cement had finally cured, approximately 15min, the clamp was removed from the patella and the knee was taken through range of motion. The capsule was then reapproximated with a No. 1 Vicryl. The deep tissues were then reapproximated with 0 Vicryl and 2-0 Vicryl. The skin was closed with a running 3-0 Monocryl in a subcuticular fashion. This was reinforced with skin glue. A Mepilex silver dressing was applied along with a [id number]-zp-kakar CURTIS wrap of both knees. A CryoCuff was applied. Belem was transferred to the hospital stretcher without difficulty an suffering no apparent complication. Belem has a good prognosis. Physical therapy will start today and without restrictions, weight-bearing as tolerated. Aspirin 81mg BID will be used for DVT prophylaxis.
--- NOTE | 2021-01-07 12:40 | W.ANESPOSTOP ---
Postoperative Evaluation Date, Time and Location Date Performed: 01/07/21 Time Performed: 12:41 Patient Location: Day Surgery Unit Vital Signs Most Recent Imported Vital Signs: Most Recent Vital Signs Temp Pulse Resp BP Pulse Ox 36.6 C 73 16 123/73 95 01/07/21 12:25 01/07/21 12:25 01/07/21 12:25 01/07/21 12:25 01/07/21 12:25 Pain Score Most Recent Pain Score: Most Recent Pain Score Pain Level 7 01/07/21 12:25 Assessment Mental Status: Awake (Alert & Oriented to Patient Baseline) Airway and Respiratory Function: Patent airway with normal (patient baseline) respiratory exam Cardiovascular Function: Hemodynamically Stable Hydration Status: Adequately Hydrated Nausea & Vomiting: No Nausea or Vomiting Pain: Pain is Moderate or Severe Postoperative Pain Management: Pain being addressed with medication Peripheral Nerve Block: Regional nerve block not resolved at time of post operative discharge
[2021-01-07] MEDS: oxyCODONE 5 MG TAB PO (12:41)
--- NOTE | 2021-01-07 13:33 | IN_ITS ---
Date of service: 01/07/21 Time of Service: 13:33 PT Notes Visit Reasons: bilateral patellofemoral replacements Physical Therapy Day Surgery Initial Evaluation Date: 01/07/2021 Referring Doctor: ANNA Rendon PT Orders: PT CONSULT: Status post Ortho surgery Precautions: WBAT on B LE with AD. Patient Profile/Admitting Diagnosis: Belem is a 56-year-old female with patellofemoral arthritis of both knees and is status post bilateral patellofemoral replacement on postoperative day 0. PMHX: Medical History Anxiety Depression Grade II hemorrhoids (02/10/17) History of alcoholism Osteoarthritis of left knee Osteoarthritis of right knee PTSD (post-traumatic stress disorder) Surgical History H/O colonoscopy (~03/2019) Hyperplastic polyp. H/O hysterectomy with oophorectomy History of arthroscopic knee surgery Bilateral Rotator Cuff Repair (~1999) right Status post excision of Orozco's neuroma (12/04/19) Social History/Home Situation: Lives in a private home with a flight of steps to enter, rails on both sides. 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 Equipment Owned/DME: FWW, SPC Subjective: Agreeable to PT consult. Reports achiness on the medial thighs with weight bearing and home exercises. Objective: General Observation: CURTIS wraps to B LE. IV access in R UE. Cryocuff to B knees. Appeared a little restless and wanting to move very much when PT arrived. Mental Status: Alert and oriented x 4. Pain: 3-4/10 in B knees ROM: Right Lower Extremity: Hip flexion WFL. Hip abduction WFL. Knee flexion WFL. Ankle dorsiflexion WFL. Ankle plantarflexion WFL. Left Lower Extremity: Hip flexion WFL. Hip abduction WFL. Knee flexion 10 degr ees to 90 degrees. Extension -10 degrees. Ankle dorsiflexion WFL. Ankle plantarflexion WFL. Strength: Right Lower Extremity: Hip flexors 5/5. Hip abductors 5/5. Knee flexors 4/5. Knee extensors 4/5. Ankle dorsiflexors 5/5. Ankle plantarflexors 5/5. Left Lower Extremity:Hip flexors 5/5. Hip abductors 5/5. Knee flexors 3-/5. Knee extensors 3-/5. Ankle dorsiflexors 5/5. Ankle plantarflexors 5/5. Sensation: Intact as to pain and light pressure in bilateral lower extremities Bed Mobility/Transfers: Supine to sit standby assist Sit to stand contact-guard assist Stand to sit standby assist Bed to chair contact-guard assist Gait: Instructed patient with level surface ambulation of 2 150 feet using front wheeled walker step through gait pattern requiring standby assist. Reported some increased achiness in bilateral knees after activity. Denies headache, chest pain, and dizziness throughout activity Balance: Static Sitting: Normal Dynamic Sitting: Normal Static Standing: Fair Dynamic Standing: Fair Special Tests: Mobility Limitations Standardized Measure [facility] AM-PAC 6 clicks Basic Mobility Inpatient Short Form: Raw Score: 22 CMS Score: % deficit Informed Consent/Education: Patient instructed in purpose of PT consult. Packet containing B PF replacement exercise protocol has been given to patient. Education and training on initial set of exercises that can be done at home have been completed with patient. Assessment: Patient requires front wheeled walker to maximize independence of mobility ADL performance and to reduce fall risk at home. Belem is a 56-year-old female with patellofemoral arthritis of both knees and is status post bilateral patellofemoral replacement on postoperative day 0 Patient presents with clinical signs and symptoms consistent with current/admitting diagnoses that have resulted to mobility limitations, gait instability, generalized weakness, and impairment of motor control as demonstrated by the following impairment level findings: 1. Decreased strength to B knee major muscle groups 2. Impaired standing balance 3. Limitation of joint range of motion in right 67407 moderate knee Impairments are contributing to the following functional limitations: 1. Inability to safely ambulate without assistive device 2. Increase completion time for mobility ADL performance 3. Increased fall risk Patient is assessed as a complexity based on the following: History: 56-year-old female with impairment level findings, functional limitations, and past medical history as indicated above Examination: Demonstrable impairment in strength, balance, and mobility level with underlying impairments and functional limitations as documented above Presentation: Evolving Decision Makin moderate Goals: N/A. PT evaluation and 1-2 treatment sessions only for functional mobility training using recommended AD and for HEP instruction. Plan of Care/Treatment Plan: N/A. PT evaluation and 1-2 treatment session only for functional mobility training using recommended AD and for HEP instruction. DISCHARGE RECOMMENDATIONS: Home when medically cleared by orthopedic surgeon. Outpatient PT services to facilitate return to premorbid independent mobility level and allow full return to vocational activities without an assistive device. TREATMENT CODE/TIME: 58443 x 30 minutes, 75010 x 27 minutes beginning at 13:33 PM. Thank you for the opportunity to participate in the care of this patient. Karen Solares PT, DPT, CLT [facility] [place], [place]
== END 2021-01-07 15:20 | disposition home or self-care (01) ==
PROVIDERS: PCP Nurse Practitioner; Visit Provider Student in an Organized Health Care Education/Training Program
PROC: (CPT 27437; principal; 2021-01-07 07:30)
DX: M17.12 Unilateral primary osteoarthritis, left knee (principal); M17.11 Unilateral primary osteoarthritis, right knee; G47.33 Obstructive sleep apnea (adult) (pediatric)
CPT/HCPCS: 27442; 76942; 97162; 97530; J0690; J1100; J1885; J2250; J2370; J2405; J3010

== ENCOUNTER 2021-01-22 10:52 | Outpatient (CLI) | payer OTHER, SELFPAY ==
--- NOTE | 2021-01-22 10:15 | DI.RAD_ITS ---
Exam(s) XR KNEE LT 2V AP,LAT EXAM: XR KNEE LT 2V AP,LAT CLINICAL HISTORY: 1ST POST OP L PATELLAR FEMORAL REPLACEMENT. TECHNIQUE: 2D digital imaging was performed. COMPARISON: CR XR KNEE RT 2V AP,LAT from 01/22/2021 FINDINGS: There is satisfactory position of femoral component of the patellofemoral compartment prosthesis. No fracture or loosening. There has also been patellar resurfacing. Some marginal osteophytes are not ed off the medial and lateral compartments but without joint space narrowing of these compartments on the upright weight-bearing view. On the lateral view we note a calcified fabella located posterolaterally, similar to the opposite erna e. However, on this side there is no evidence of loose calcified intra-articular body, as is evident on the opposite-right side. IMPRESSION: DATA REPOSITORY: RADIATION DOSE DELIVERED:
--- NOTE | 2021-01-22 10:15 | DI.RAD_ITS ---
Exam(s) XR KNEE RT 2V AP,LAT EXAM: XR KNEE RT 2V AP,LAT CLINICAL HISTORY: 1ST POST OP R PATELLOFEMORAL REPLACEMENT. TECHNIQUE: 2D digital imaging was performed. COMPARISON: CR XR KNEE LT 3V AP,LAT,GOPAL from 05/05/2020 FINDINGS: There is satisfactory position femoral component of the patellofemoral compartment prosthesis. Also noted is evidence of patellar resurfacing. On the lateral view there is a 10 x 6 millimeter calcific density noted which is just anterior to the lateral tibial plateau. This is possibly a loose intra- articular body. Posteriorly there is a fabella incidentally note. There are minimal degenerative changes in the lateral and medial compartments. IMPRESSION: DATA REPOSITORY: RADIATION DOSE DELIVERED:
== END 2021-01-22 10:53 | disposition home or self-care (01) ==
LOC: DIORS 10:52
PROVIDERS: PCP Nurse Practitioner; Referring Provider Nurse Practitioner; Visit Provider Student in an Organized Health Care Education/Training Program
DX: M17.0 Bilateral primary osteoarthritis of knee (principal); Z96.652 Presence of left artificial knee joint; Z96.661 Presence of right artificial ankle joint; Z98.890 Other specified postprocedural states
CPT/HCPCS: 73560

== ENCOUNTER → 2021-05-27 01:02 | Outpatient (CLI) | payer OTHER, SELFPAY ==
--- NOTE | 2021-05-27 06:45 | DI.MAMMO_ITS ---
Exam(s) MAMMO SCREENING EXAM: MAMMO SCREENING CLINICAL HISTORY: screening,z12.39. TECHNIQUE: Bilateral full field digital CC and MLO mammographic images were obtained with 3D tomosyn thesis and utilizing computer aided detection (CAD). COMPARISON: Prior mammograms dating back to 2012, the most recent being April 2020. FINDINGS: There has been no significant change in the appearance and distribution of the fibroglandular tissue. There are no CAD designations. There are no new spiculated masses nor malignant appearing microcalcification groups. Asymmetric nodular densities anteriorly in left breast unchanged from prior studies and therefore ana laura ign. There is no significant architectural distortion nor skin thickening-retraction. IMPRESSION: Stable benign findings. No radiographic evidence of malignancy. BI-RADS Category 2 - Benign Findings Breast Density - Category B - Scattered areas of fibroglandular density Breast density Category C or D implies that the patient has dense breast tissue. Dense breast tissue can make it harder to find cancer on a mammogram. Dense breast tissue is also associated with an incr eased risk of breast cancer. This information about the result of the mammogram report was provided to the patient to raise their awareness. Use this report when you speak with the patient about their risks for breast cancer, which includes their family history. At that time, you may recommend additional screening tests (Ultrasoun d or MRI) as these tests may add significant information. A negative radiographic report should not delay biopsy if a dominant or clinically suspicious mass is present. Up to ten percent of cancers are not identified on mammography. A negative report may reinforce clinical impression. Adenosis and dense breasts may obscure an underlying neoplasm. False positive reports average 6 to 10%. Patient will receive a letter notifying them of these results.
== END ==
PROVIDERS: PCP Nurse Practitioner; Visit Provider Nurse Practitioner
DX: Z12.31 Encounter for screening mammogram for malignant neoplasm of breast (principal)
CPT/HCPCS: 77063; 77067

== ENCOUNTER 2021-10-20 01:58 | Outpatient (CLI) | payer OTHER, SELFPAY ==
[2021-10-20 12:49] LABS: Calculated LDL 212 mg/dL (<100); Cholesterol 300 mg/dL (<200); HDL Cholesterol 53 mg/dL (40-60); Triglyceride 177 mg/dL (<150)
== END 2021-10-20 01:59 | disposition home or self-care (01) ==
LOC: LOS 01:58
PROVIDERS: PCP Nurse Practitioner; Visit Provider Nurse Practitioner
DX: E78.2 Mixed hyperlipidemia (principal)
CPT/HCPCS: 36415; 80061

== ENCOUNTER 2021-10-21 03:45 | Outpatient (CLI) | payer OTHER, SELFPAY | END 2021-10-21 03:46 | disposition home or self-care (01) | LOC: LBO 03:45 | PROVIDERS: PCP Nurse Practitioner; Visit Provider Nurse Practitioner ==

== ENCOUNTER 2022-01-27 01:43 | Outpatient (CLI) | payer OTHER, SELFPAY ==
[2022-01-27 13:05] LABS: Calculated LDL 78 mg/dL (<100); Cholesterol 154 mg/dL (<200); HDL Cholesterol 59 mg/dL (40-60); Triglyceride 85 mg/dL (<150)
== END 2022-01-27 01:44 | disposition home or self-care (01) ==
LOC: LOS 01:43
PROVIDERS: PCP Nurse Practitioner; Visit Provider Nurse Practitioner
DX: E78.5 Hyperlipidemia, unspecified (principal)
CPT/HCPCS: 80061

== ENCOUNTER 2022-07-29 10:51 | Emergency (ER) | payer BC, SELFPAY ==
[2022-07-29 10:55] VITALS: BP 169/103; PULSE 116; RESP 22; TEMP 37.2; O2SAT 96
[2022-07-29] MEDS: Lidocaine/Epinephri/Tetracaine Topical Gel 3 ML (11:05)
--- NOTE | 2022-07-29 11:28 | NUR.NOTE ---
Nursing Note: Animal bite report form faxed to [facility]. Message left for health officer; Latoya Ortiz regarding animal bite and form.
[2022-07-29] MEDS: LORazepam 1 MG TAB PO (11:34)
--- NOTE | 2022-07-29 11:54 | ED.GENADUL_ITS ---
Discharge Plan Disposition Patient Disposition: Home Discharge Details Clinical Impression: Open wound of face due to dog bite Primary Care Provider: Tabitha Menendez ED Provider: Adis Pritchett Home Meds and New Rx's Prescriptions: No Action disulfiram 250 mg tablet 250 mg PO DAILY Qty: 90 4RF clonazepam 0.5 mg tablet 0.5 mg PO TID 30 Days Qty: 90 2RF trazodone 50 mg tablet 100 mg PO QHS PRN (Reason: sleep) Qty: 180 4RF baclofen 10 mg tablet 20 mg PO TID PRN (Reason: muscle spasm) Qty: 90 3RF venlafaxine 37.5 mg capsule,extended release 24hr 37.5 mg PO DAILY Qty: 14 0RF fluoxetine 40 mg capsule 40 mg PO DAILY Qty: 90 1RF oxycodone 5 mg tablet 5 mg PO TID MDD 15mg PRN (Reason: pain) 7 Days Qty: 21 0RF rosuvastatin 10 mg tablet 10 mg PO DAILY Qty: 90 4RF Discharge Instructions Instructions: Animal Bite (ED) Additional Instructions: We have arranged for you to see Dr. Chew in the [place] [facility] She will provide definitive care of your facial laceration. Upon discharge she will need to go directly to [facility] [place] and parked in the parking garage. There w ill be an information desk on the fourth floor and you will need to go to [facility] ENT clinic. Referrals: [facility] [Outside] Discharge Data Discharge Date/Time-TO BE ENTERED AT DEPARTURE: 07/29/22 12:11 Medical Decision Making Patient presenting to the emergency department for chief complaint of dog bite to the face. Patient reports that just prior to arrival she was petting a friend's dog and leaned too close to its face and it bit her left upper lip. Patient denies any other injury or trauma. Physical exam shows a complex flap laceration with ecchymosis irregularity and involving multiple points of the vermilion border. There is not any significant injury to teeth or gums, patient appears anxious but otherwise exam is unremarkable. We will give patient Ativan for anxiety and contact tertiary [facility] for plastic surgery consultation. Due to complex nature along with vermilion border involvement in multiple locations and difficult to visualize this I did contact [facility] and spoke with Dr. Chew with ENT/plastics. After further discussion she recommended that patient be discharged and present to their clinic and that they would be able to repair the wound in the office. Patient was agreeable to this plan of care. Patient discharged in stable condition. HPI General Mode of arrival: ambulatory . Date/Time Provider Initiated Documentation: 07/29/22 11:03 . Limitations to Documentation: no limitations . Information obtained by: patient and RN notes reviewed . History of Present Illness 57 year old F presents to the emergency department with the chief complaint of Dog bite to the face, described as severe, with intensity rated at 8. Quality is described as sharp, and is localized to the face and mouth. Patient started experiencing this hour(s) (<1) and it has been constant. No relieving factors improve symptom(s), No exacerbating factors reported . Patient notes no other symptoms.. Patient did receive the following treatments prior to arrival, none Related Data Home Medications Medication Instructions Recorded Confirmed disulfiram 250 mg tablet 250 mg PO DAILY #90 tabs 07/21/21 08/06/22 rosuvastatin 10 mg tablet 10 mg PO DAILY #90 tabs 10/21/21 08/06/22 clonazepam 0.5 mg tablet 0.5 mg PO TID Anxiety 30 days #90 06/08/22 08/06/22 tabs baclofen 10 mg tablet 20 mg PO TID PRN muscle spasm #90 07/06/22 08/06/22 tabs trazodone 50 mg tablet 100 mg PO QHS PRN sleep #180 tabs 07/06/22 08/06/22 fluoxetine 40 mg capsule 40 mg PO DAILY #90 caps 08/03/22 08/06/22 oxycodone 5 mg tablet 5 mg PO TID PRN pain 7 days #21 08/03/22 08/06/22 tabs venlafaxine 37.5 mg 37.5 mg PO DAILY Depression #14 08/03/22 08/06/22 capsule,extended release 24 hr caps Previous Rx's Medication Instructions Recorded disulfiram 250 mg tablet 250 mg PO DAILY #90 tabs 07/21/21 rosuvastatin 10 mg tablet 10 mg PO DAILY #90 tabs 10/21/21 clonazepam 0.5 mg tablet 0.5 mg PO TID Anxiety 30 days #90 06/08/22 tabs baclofen 10 mg tablet 20 mg PO TID PRN muscle spasm #90 07/06/22 tabs trazodone 50 mg tablet 100 mg PO QHS PRN sleep #180 tabs 07/06/22 fluoxetine 40 mg capsule 40 mg PO DAILY #90 caps 08/03/22 oxycodone 5 mg tablet 5 mg PO TID PRN pain 7 days #21 08/03/22 tabs venlafaxine 37.5 mg 37.5 mg PO DAILY Depression #14 08/03/22 capsule,extended release 24 hr caps Allergies Allergy/AdvReac Type Severity Reaction Status Date / Time aspirin AdvReac Intermediate Ringing in Verified 08/06/22 08:13 ears General Stated Complaint: AnimalBite RENETTA: 3 Review of Systems Narrative: 6 systems reviewed and unremarkable except what is marked below. ENT Ears, Nose, Mouth, and Throat: Reports system reviewed and no additional complaints, except as documented, Reports as per HPI and Reports other (Dog bite to the left upper lip) PFSH All Active Problems Open wound of face due to dog bite (Acute) Bulimia (Chronic) Obesity (Chronic) Trochanteric bursitis of both hips (Acute) Injected: 01/15/22; 01/22/2021; 03/19/21; 04/16/22; 08/06/22 Anxiety (Chronic) q m6 mo visits Depressive disorder (Chronic) Smoker (Chronic) Hyperlipidemia (Acute) Osteoarthritis of right knee (Acute) Osteoarthritis of left knee (Acute) Medical History Colon polyp Diverticulosis Grade II hemorrhoids (02/10/17) History of alcoholism MERARY on CPAP PTSD (post-traumatic stress disorder) Surgical History H/O colonoscopy (~03/2019) Hyperplastic polyp. H/O hysterectomy with oophorectomy History of arthroscopic knee surgery Bilateral Patellofemoral arthritis of left knee S/P LEFT PATELLOFEMORAL REPLACEMENT 01/07/2021 Patellofemoral arthritis of right knee S/P R PATELLOFEMORAL REPLACEMENT 01/07/2021 Rotator Cuff Repair (~1999) right Status post excision of Orozco's neuroma (12/04/19) Family History Mother Asthma Heart disease Father , 79 Stroke Sister No problems noted. Brother No problems noted. Maternal Grandfather No problems noted. Paternal Grandfather No problems noted. Maternal Grandmother No problems noted. Paternal Grandmother No problems noted. Daughter No problems noted. Daughter , age 3 months No problems noted. Social History Smoking/Tobacco Use Status: Current every day Tobacco Type: cigarettes Years smoked: 20 Quit status: has quit before Second Hand Exposure: Yes Smoking risk assessment performed?: Yes Alcohol Intake: former Drug use: Never Substance use type: does not use Caregiver/Support person: No Household members: none Housing: apartment Communication Needs: None Do you need help understanding health information?: Never current occupation: IT at [employer] Pets and animals: No Sexually active: Yes Do you think of yourself as: straight/heterosexual Current gender identity: female What is your relationship status?: How often do you talk on the phone with friends or family?: three or more times per week How often do you get together with friends or relatives?: three or more times per week How often do you attend christian or yazidi services?: 4 or more times per year Do you belong to any clubs or organized social groups?: yes Panel score (0-1 are the most socially isolated patients): 3 What type of physical activity do you participate in: bicycling, swimming, weight lifting and other Details: pool therapy Frequency: 3-4 times per week Jossie/Mandaen: Temple Special jossie needs: No Seatbelt use: always Helmet use: Yes Helmet use: always 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 Do you feel safe at home: Yes Do you feel safe in your relationship?: Yes Additional Social history: Lives with Daughter Exam Const General: cooperative, acute distress moderate and anxious Orientation: alert, awake and oriented x3 HENMT Head: normal to inspection, no palpable skull fracture and normocephalic Ears: hearing grossly normal bilaterally and external ears normal General nose exam: external nose normal and nares normal Face and sinus: laceration left upper lip irregular, flap, actively bleeding, superficial and involving subcutaneous tissue Mouth: moist mucous membranes Resp Effort & Inspection: normal respiratory effort, able to speak in complete sentences and no respiratory distress Neuro General: patient alert, patient awake, patient oriented x3, moves all extremities and no focal motor deficits Sensory Exam: no sensory deficits noted Course Vital Signs Vital signs: Vital Signs Temperature 37.2 C 07/29/22 10:55 Pulse 116 H 07/29/22 10:55 Respiratory Rate 22 07/29/22 10:55 Blood Pressure 169/103 H 07/29/22 10:55 Pulse Oximetry 96 07/29/22 10:55 Temperature 37.2 C 07/29/22 10:55 Temperature Source Temporal Artery Scan 07/29/22 10:55 Pulse 116 H 07/29/22 10:55 Respiratory Rate 22 07/29/22 10:55 Respiratory Effort Normal 07/29/22 11:02 Blood Pressure 169/103 H 07/29/22 10:55 Blood Pressure Position Sitting 07/29/22 10:55 Pulse Oximetry 96 07/29/22 10:55 Oxygen Delivery Method Room Air 07/29/22 10:55 Oxygen Flow Rate 0 07/29/22 10:55 Pain Level 10 07/29/22 10:55
[2022-07-29 12:22] VITALS: BP 159/95; PULSE 84; RESP 16; TEMP 36.7; O2SAT 97
== END 2022-07-29 12:11 | disposition home or self-care (01) ==
PROVIDERS: Emergency Provider Nurse Practitioner Family; PCP Nurse Practitioner Family
DX: S01.85XA Open bite of other part of head, initial encounter (principal); W54.0XXA Bitten by dog, initial encounter; F41.9 Anxiety disorder, unspecified
CPT/HCPCS: 99283

== ENCOUNTER 2022-08-20 01:45 | Outpatient (CLI) | payer BC, SELFPAY ==
[2022-08-20 12:10] LABS: Abs Immature Grans 0.07 10^3/uL (0.0-0.06); Absolute Basophil Count 0.09 10^3/uL (0.0-0.2); Absolute Eosinophil Count 0.22 10^3/uL (0.0-0.7); Absolute Neutrophil Count 6.65 10^3/uL (1.2-6.7); Basophils % 0.7; Eosinophils % 1.8; HCT 42.8 % (36.0-46.0); HGB 14.3 g/dL (11.2-15.7); Immature Grans % 0.6; Lymphocytes % 34.3; MCH 31.4 pg (27.0-33.0); MCHC 33.4 % (32.0-36.0); MCV 94 fL (80-95); Monocytes % 8.3; Neutrophils % 54.3; Platelet Count 375 10^3/uL (130-400); RBC 4.56 10^6/uL (3.93-5.22); RDW 14.2 % (11.7-14.6); RDW-SD 49.4 fL; WBC 12.24 10^3/uL (4.4-10.8)
[2022-08-20 12:12] LABS: Absolute Monocyte Count 1.02 10^3/uL (0.1-0.8)
[2022-08-20 12:44] LABS: Hemoglobin A1C 5.7 % (<5.7)
[2022-08-20 12:47] LABS: ALT 37 U/L (14-59); AST 16 U/L (15-37); Albumin 3.4 g/dL (3.4-5.0); Alkaline Phosphatase 72 U/L (46-116); Anion Gap 7.3 mmol/L (3-11); BUN 14 mg/dL (7-18); Bilirubin, Total 0.2 mg/dL (0.2-1.0); CO2 28.7 mmol/L (21.0-32.0); CREATININE 0.8 mg/dL (0.55-1.02); Calculated LDL 75 mg/dL (<100); Chloride 107 mmol/L (98-107); Cholesterol 148 mg/dL (<200); Estimated GFR 84.82 (mL/min/1.73m2); Glucose 91 mg/dL (74-106); HDL Cholesterol 52 mg/dL (40-60); Potassium 4.4 mmol/L (3.5-5.1); Sodium 143 mmol/L (136-145); TSH (W/Ref FT4) 1.18 uIU/mL (0.36-3.74); Total Protein 7.2 g/dL (6.4-8.2); Triglyceride 105 mg/dL (<150)
[2022-08-23 11:06] LABS: Hep B Core Antibody Negative (Negative)
[2022-08-23 11:15] LABS: Measles IgG Antibody Negative (See Note); Mumps Antibody IgG Positive (See Note); Rubella IgG Ab (UVM) Positive (See Note); Varicella IgG Antibody Positive (See Note)
== END 2022-08-20 01:46 | disposition home or self-care (01) ==
LOC: LOS 01:53
PROVIDERS: PCP Nurse Practitioner Family; Visit Provider Nurse Practitioner Family
DX: E66.9 Obesity, unspecified (principal); E78.5 Hyperlipidemia, unspecified; F32.A Depression, unspecified; F41.9 Anxiety disorder, unspecified; F50.2 Bulimia nervosa; Z00.00 Encounter for general adult medical examination without abnormal findings
CPT/HCPCS: 36415; 80053; 80061; 86704; 86787; 83036; 84443; 85025; 86735; 86762; 86765

== ENCOUNTER 2022-10-14 10:49 | Outpatient (CLI) | payer BC, SELFPAY ==
--- NOTE | 2022-10-14 10:30 | DI.RAD_ITS ---
Exam(s) XR KNEE RT 4V AP,LAT,GOPAL,PAT EXAM: XR KNEE RT 4V AP,LAT,GOPAL,PAT CLINICAL HISTORY: RIGHT KNEE INJURY. TECHNIQUE: 2D digital imaging was performed. COMPARISON: CR XR KNEE LT 2V AP,LAT from 01/22/2021 CR XR KNEE RT 2V AP,LAT from 01/22/2021 FINDINGS: 3 views Continued satisfactory position of patellofemoral compartment prosthesis. No loosening evident. No fractures. Patellar resurfacing noted. IMPRESSION: Satisfactory appearance. DATA REPOSITORY: RADIATION DOSE DELIVERED:
== END 2022-10-14 10:50 | disposition home or self-care (01) ==
LOC: DIORS 10:49
PROVIDERS: PCP Nurse Practitioner Family; Visit Provider Student in an Organized Health Care Education/Training Program
DX: S89.91XA Unspecified injury of right lower leg, initial encounter (principal); X58.XXXA Exposure to other specified factors, initial encounter
CPT/HCPCS: 73564

== ENCOUNTER 2023-01-05 09:59 | Outpatient (CLI) | payer BC, SELFPAY ==
--- NOTE | 2023-01-05 08:45 | DI.RAD_ITS ---
Exam(s) XR HIP PELVIS ADULT BL EXAM: XR HIP PELVIS ADULT BL CLINICAL HISTORY: BILATERAL HIP PAIN. TECHNIQUE: 2D digital imaging was performed of the pelvis and bilateral hips. Three images were obt ained. AP pelvis and lateral views of both hips were obtained. COMPARISON: No exams were available for comparison FINDINGS: BONES: No acute fracture is present. No bony destructive lesion is seen. JOINTS: No dislocation present. The hip joints are well maintained. SOFT TISSUE: Normal. IMPRESSION: Unrmarkable radiographs of bilat hips. Unremarkable radiographs of the pelvis DATA REPOSITORY: RADIATION DOSE DELIVERED:
== END 2023-01-05 10:00 | disposition home or self-care (01) ==
LOC: DIORS 10:00
PROVIDERS: PCP Nurse Practitioner Family; Referring Provider Nurse Practitioner Family; Visit Provider Student in an Organized Health Care Education/Training Program
DX: M70.61 Trochanteric bursitis, right hip (principal); M70.62 Trochanteric bursitis, left hip
CPT/HCPCS: 73521

== ENCOUNTER 2023-01-14 09:58 | Day surgery (SDC) | payer BC, SELFPAY ==
[2023-01-14] VITALS (11 sets, daily range): BP systolic 92–130; BP diastolic 54–90; PULSE 73–80; RESP 12–16; TEMP 36.4–36.7; O2SAT 96–100; BMI 28.8
[2023-01-14] MEDS: Lactated Ringers 1,000 ML 30 ML IV (11:13)
--- NOTE | 2023-01-14 12:04 | W.ANESPRE ---
General Info Date of Service Date Performed: 01/14/23 Height: 5 ft 7 in Weight: 83.5 kg Body Mass Index (BMI): 28.8 Surgical Procedure: Operation Date: 01/14/23 14:35 Proposed Procedure Side Surgeon p Endoscopic Iliotibial Band Release w/ Trochanteric Bursectomy Right Jamil Jerome MD Meds Allergies and Home Medications Allergies Allergy/AdvReac Type Severity Reaction Status Date / Time aspirin AdvReac Intermediate Ringing in Verified 01/14/23 10:43 ears Home Medication Medication Instructions Recorded trazodone 50 mg tablet 100 mg PO QHS PRN sleep #180 tabs 08/31/22 rosuvastatin 10 mg tablet 10 mg PO DAILY #90 tabs 10/14/22 baclofen 10 mg tablet 20 mg PO TID PRN muscle spasm #90 12/08/22 tabs disulfiram 250 mg tablet 250 mg PO DAILY 12/08/22 multivitamin 1 tab PO DAILY 12/08/22 semaglutide (weight loss) 2.4 2.4 mg (0.75 mL) subcut QWEEK #3 mL 12/21/22 mg/0.75 mL subcutaneous pen injector (Michele) clonazepam 0.5 mg tablet 0.5 mg PO TID Anxiety 30 days #90 01/04/23 tabs fluoxetine 20 mg capsule 20 mg PO DAILY #90 caps 01/04/23 fluoxetine 40 mg capsule 40 mg PO DAILY #90 caps 01/04/23 ondansetron HCl 4 mg tablet 4 mg PO Q8H PRN nausea and 01/04/23 vomiting #30 tabs Current Visit Medications: Current Medications Generic Name Dose Route Start Last Admin Trade Name Freq PRN Reason Stop Dose Admin Ringer's Solution 1,000 mls @ 30 mls/hr 01/14/23 06:00 01/14/23 11:13 IV 02/12/23 23:59 30 mls/hr INFUSION MANNY Administration Cefazolin Sodium/Dextrose 2 gm in 50 mls @ 100 mls/hr 01/14/23 06:00 Ancef Duplex IVPB 02/12/23 23:59 PREOP MANNY IV Miscellaneous Supplies 1 each 01/14/23 06:00 Iv Access IV 02/12/23 23:59 DIRECTED MANNY Sodium Chloride 0 ml 01/14/23 06:00 Normal Saline Flush 10 Ml Syr IV 02/12/23 23:59 PRN PRN Sodium Chloride 0 ml 01/14/23 06:00 Normal Saline 10 Ml Vial IJ 02/12/23 23:59 DIRECTED PRN Sterile Water 0 ml 01/14/23 06:00 Water,Injection,Sterile 10 Ml Vial IJ 02/12/23 23:59 DIRECTED PRN PFSH Active Problems Active Problems: Problem Status Onset Code Anxiety F41.9 Depressive disorder F32.9 Smoker F17.200 Hyperlipidemia E78.5 Osteoarthritis of left knee M17.12 Osteoarthritis of right knee M17.11 Trochanteric bursitis of both hips M70.61, M70.62 Obesity E66.9 Bulimia F50.2 Internal derangement of right knee M23.91 Constipation K59.00 Iliotibial band syndrome of both sides M76.31, M76.32 Medical History Medical History Colon polyp Diverticulosis Grade II hemorrhoids (02/10/17) History of alcoholism MERARY on CPAP PTSD (post-traumatic stress disorder) Pt. states no potential triggers Surgical History Surgical History H/O colonoscopy (~03/2019) Hyperplastic polyp. H/O hysterectomy with oophorectomy History of arthroscopic knee surgery Bilateral Patellofemoral arthritis of left knee S/P LEFT PATELLOFEMORAL REPLACEMENT 01/07/2021 Patellofemoral arthritis of right knee S/P R PATELLOFEMORAL REPLACEMENT 01/07/2021 Rotator Cuff Repair (~1999) right Status post excision of Orozco's neuroma (12/04/19) Tobacco Smoking/Tobacco Use Status: Current every day Tobacco Type: cigarettes Years smoked: 20 Passive smoking exposure: Yes Second hand exposure: Yes Alcohol Alcohol Intake: former Substance Use Substance use: Never Substance use type: does not use Vital Signs and Lab Results Vital Signs Most Recent Vital Signs in EMR: Most Recent Vital Signs Temp Pulse Resp BP Pulse Ox 36.7 C 75 16 112/69 100 01/14/23 10:38 01/14/23 10:38 01/14/23 10:38 01/14/23 10:38 01/14/23 10:38 Lab Results Blood Type / Crossmatch: No Data to Display Complete Blood Count: No Data to Display Complete Metabolic Panel: No Data to Display Liver Function Panel: No Data to Display Coagulation Panel: No Data to Display Cardiac Panel: No Data to Display Arterial Blood Gas: No Data to Display Venous Blood Gas: No Data to Display Pancreas Panel: No Data to Display Thyroid Panel: No Data to Display Infectious Disease: No Data to Display Blood Cultures: No Data to Display Toxicology Panel: No Data to Display Anesthesia Assessment and Plan Anesthesia History Personal History: No History of Anesthesia Complications Family History: No Family History of Anesthesia Complications Exercise Tolerance Exercise Tolerance: Metabolic Equivalents>4 Pertinent Negatives Pertinent Negatives: No Symptoms of GERD Cardiac & Pulmonary Exam Cardiac Exam: Normal S1/S2 Heart Sounds Pulmonary Exam: Clear Bilateral Breath Sounds Implantable Cardiac Device Does patient have a Pacemaker or an ICD?: No Airway Exam Known Difficult Airway: No Mallampati Class: 2 Mouth Opening: Normal (> 3cm) Thyromental Distance: Greater than 3 cm Neck Range of Motion: Full ROM Neck Circumference: Normal Teeth Condition: Normal Dentition and Generalized Poor Dentition Tooth Numberin. Missing, unable to determine number, patient reports 2 ASA Classification ASA Score: ASA 2 Emergency Case?: No NPO Status NPO Status: NPO Clears >2 hours, Solids >8 hours Anesthesia Plan Resuscitation Status: Full Code Anesthesia Technique: General Anesthesia Airway Planned: Endotracheal Tube Monitors Used: Standard Monitors
[2023-01-14] MEDS: ceFAZolin 2 GM/50 ML BAG IVPB (13:08)
[2023-01-14] MEDS: Normal Saline 100 ML (13:42)
[2023-01-14] MEDS: Tranexamic Acid 1,000 MG/10 ML VIAL 1000 MG (13:42)
[2023-01-14] MEDS: EPINEPHrine 30 MG/30 ML VIAL (13:57)
--- NOTE | 2023-01-14 14:17 | W.PM.DSUDISC ---
Date of service: 01/14/23 Time of Service: 14:00 Discharge Plan Disposition Patient Disposition: Home Condition: Stable Discharge Details Attending Provider: Jamil Jerome Primary Care Provider: Tabitha Menendez Home Meds and New Rx's Prescriptions: New naproxen 250 mg tablet 250 - 500 mg PO BID PRN (Reason: moderate pain and swelling) Qty: 40 0RF oxycodone 5 mg tablet 5 - 10 mg PO .q4-6h PRN (Reason: severe pain) Qty: 18 0RF aspirin 81 mg capsule 81 mg PO DAILY 14 Days Qty: 14 0RF Continued trazodone 50 mg tablet 100 mg PO QHS PRN (Reason: sleep) Qty: 180 4RF rosuvastatin 10 mg tablet 10 mg PO DAILY Qty: 90 4RF disulfiram 250 mg tablet 250 mg PO DAILY multivitamin 1 tab PO DAILY baclofen 10 mg tablet 20 mg PO TID PRN (Reason: muscle spasm) Qty: 90 3RF clonazepam 0.5 mg tablet 0.5 mg PO TID 30 Days Qty: 90 2RF ondansetron HCl 4 mg tablet 4 mg PO Q8H PRN (Reason: nausea and vomiting) Qty: 30 0RF fluoxetine 40 mg capsule 40 mg PO DAILY Qty: 90 3RF fluoxetine 20 mg capsule 20 mg PO DAILY Qty: 90 3RF Rx Instructions: take with 40 mg fluoxetine for a total 60 mg daily. Wegovy 2.4 mg/0.75 mL pen injector 2.4 mg subcut QWEEK Qty: 3 3RF Discharge Instructions Additional Instructions: Surgery: Right hip endoscopy with iliotibial band release and trochanteric bursectomy Activity: Weightbearing as tolerated. May use crutches or walker as needed for a few days. Gradually advance to full range of motion and activity over the next few weeks. A physical therapy prescription will be provided separately in the office at follow up if needed. Prescriptions: Aspirin 81 mg take 1 daily to prevent a blood clot for 2 weeks (use Naproxen twice daily if unable to tolerate aspirin) Naproxen 250 mg take 1-2 every 12 hours with a meal as needed for moderate pain Oxycodone 5 mg take 1-2 every 4-6 hours as needed for severe pain You may use [id number] Tylenol (acetaminophen) as needed for mild pain. These pain medications may be taken all at once or in different combinations as needed. Also, recommend Colace (docusate) as a stool softener as surgery and pain medicine cause constipation. You may try kana-hso-taweafs diphenhydramine (Benadryl) 25-50 mg nightly as a sleep aid Dressings: Leave dressing in place for 3 days. May then remove and leave open to air or cover incisions with Band-Aids. Leave the sticky Steri-Strips in place until they fall off or remove them after you shower. May shower after 5 days. Follow-up: 10-[address] Jerome You may take off the leg compression stockings this evening at home. You may also leave them on a few days longer if you have a history of leg swelling or edema. Let us know right away if you develop any redness, drainage, fevers, chest pain, or trouble breathing. Do not drink alcohol or drive for at least 24 hours after anesthesia. Please call the office during business hours with any questions or concerns. DS: Diagnosis Discharge Diagnosis (1) Trochanteric bursitis, right hip: Status: Acute
--- NOTE | 2023-01-14 14:18 | DI.RAD_ITS ---
Exam(s) XR HIP RT IN OR EXAM: XR HIP RT IN OR CLINICAL HISTORY: Right hip trochanteric bursitis/IT band syndrome TECHNIQUE: 2D and realtime digital imaging was performed. CONTRAST MATERIAL: Refer to procedure report. COMPARISON: CR XR HIP PELVIS ADULT BL from 01/05/2023 FINDINGS: Fluoroscopy was provided for Dr. Jerome during the treatment for IT band syndrome and trochanteric b ursitis. Please refer to the procedure report for complete details. Ka,r=1.28 mGy IMPRESSION: RADIATION DOSE DELIVERED:
[2023-01-14] MEDS: fentaNYL 100 MCG/2 ML VIAL IVP ×2 (14:37→14:45)
--- NOTE | 2023-01-14 14:51 | W.PM.OP ---
Date of service: 01/14/23 Time of Service: 14:00 Operative Note Operative Note DATE OF PROCEDURE: 01/14/23 PRE-OP DIAGNOSIS: Right hip 1. Iliotibial band syndrome 2. Trochanteric bursitis POST-OP DIAGNOSIS: same PROCEDURE: Right hip endoscopic 1. Iiliotibial band release, CPT# 04214 2. Trochanteric bursectomy, CPT# 79636 SURGEON: Jamil Jerome ANESTHESIA TYPE: Local By Surgeon and General LMA/ETT Refer to Anesthesia Record ESTIMATED BLOOD LOSS: 15 COMPLICATIONS: None Patient was transported to: PACU Patient's condition: stable Indications: Please see complete medical record for details. Findings: Thickened iliotibial band. Abundant inflamed trochanteric bursitis. No significant gluteal tendon tear. Procedure Description: In the operating room, general anesthesia was induced. The patient was positioned supine on the [place] operating room table. All bony prominences were well-padded. Preoperative antibiotics were administered. The Right hip was prepped and draped in the usual sterile fashion. The correct patient, procedure, and side of the procedure were all verified prior to incision. 30 cc of 0.25% bupivacaine containing epinephrine was infiltrated about the subcutaneous tissues for the planned anterior lateral and distal anterolateral portals as well as deeply over the greater trochanter. A knife was used to incise the skin for the anterior lateral and distal anterolateral portals followed by blunt dissection subcutaneously. Under fluoroscopic guidance, a switching stick and arthroscope were inserted localizing the iliotibial band over the greater trochanter. Blunt dissection and the mechanical shaver were used to resect fat and overlying tissue about the center of the iliotibial band and carefully expose the anterior and posterior margins. Once there was adequate exposure of the IT band, the greater trochanter was again localized under fluoroscopic guidance with a spinal needle inserted through the skin down to bone. This central area was marked using the radiofrequency ablator. A Alutiiq blade was brought in and used to create a 2 cm longitudinal incision in line with the IT band fibers as well as extending it in a cruciate fashion with 2 cm incisions anteriorly and posteriorly. The radiofrequency ablator was used to achieve hemostasis. The mechanical shaver was then used to debride the IT band released edges exposing the trochanteric bursa. The mechanical shaver was then used to excise the trochanteric bursa taking care to protect musculature about the margins of the greater trochanter as well as neurovascular structures especially posteriorly. There was excellent visualization of the vastus lateralis as well as gluteus medius confirming appropriate bursa excision. The hip was brought through range of motion including internal and external rotation and there was no impinging iliotibial band tissue or remaining pathologic bursa. The viewing and working portals were switched and appropriate IT band release, trochanteric bursa excision, and hemostasis confirmed. Suction was used to remove fluid from the endoscopic space. The portals were closed using 3-0 Monocryl in a buried fashion. Steri-Strips were applied over the incisions followed by Xeroform, 4 x 4 gauze, an ABD pad, and secured with tape. The patient awoke from anesthesia without complication and was transferred to the recovery room in a stable condition.
[2023-01-14] MEDS: LORazepam 2 MG/ML VIAL 0.5 MG IVP ×2 (14:54→15:04)
[2023-01-14] MEDS: HYDROmorphone 2 MG/ML SYR IVP ×2 (15:10→15:25)
--- NOTE | 2023-01-14 16:12 | W.ANESPOSTOP ---
Postoperative Evaluation Date, Time and Location Date Performed: 01/14/23 Time Performed: 16:12 Patient Location: Day Surgery Unit Vital Signs Most Recent Imported Vital Signs: Most Recent Vital Signs Temp Pulse Resp BP Pulse Ox 36.5 C 77 16 119/89 97 01/14/23 15:44 01/14/23 15:44 01/14/23 15:44 01/14/23 15:44 01/14/23 15:44 Pain Score Most Recent Pain Score: Most Recent Pain Score Pain Level 7 01/14/23 15:44 Assessment Mental Status: Awake (Alert & Oriented to Patient Baseline) Airway and Respiratory Function: Patent airway with normal (patient baseline) respiratory exam Cardiovascular Function: Hemodynamically Stable Hydration Status: Adequately Hydrated Nausea & Vomiting: No Nausea or Vomiting Pain: Pain is Moderate or Severe Postoperative Pain Management: Pain being addressed with medication (Pain improving, eating some food, sitting up in bed. ) Peripheral Nerve Block: Patient did not receive a nerve block
[2023-01-14] MEDS: oxyCODONE 5 MG TAB PO (16:15)
== END 2023-01-14 17:15 | disposition home or self-care (01) ==
PROVIDERS: PCP Nurse Practitioner Family; Visit Provider Student in an Organized Health Care Education/Training Program
PROC: (CPT 29863; principal; 2023-01-14 14:15)
DX: M70.61 Trochanteric bursitis, right hip (principal)
CPT/HCPCS: 27062; 27305; 73501; J0131; J0690; J1100; J1170; J2060; J2250; J2405; J3010

== ENCOUNTER 2023-04-15 06:16 | Day surgery (SDC) | payer BC, SELFPAY ==
[2023-04-15] VITALS (9 sets, daily range): BP systolic 111–136; BP diastolic 61–80; PULSE 73–92; RESP 10–18; TEMP 36.5–37; O2SAT 94–100; BMI 26.7
--- NOTE | 2023-04-15 07:17 | W.PM.DSUDISC ---
Date of service: 04/15/23 Time of Service: 10:00 Discharge Plan Disposition Patient Disposition: Home Condition: Stable Discharge Details Attending Provider: Jamil Jerome Primary Care Provider: Tabitha Menendez Home Meds and New Rx's Prescriptions: New oxycodone 5 mg tablet 5 - 10 mg PO .q4-6h PRN (Reason: severe pain) Qty: 18 0RF aspirin 81 mg capsule 81 mg PO DAILY 14 Days Qty: 14 0RF ibuprofen 800 mg tablet 800 mg PO BID PRN PRN (Reason: moderate pain and swelling) Qty: 30 0RF Continued fluoxetine 40 mg capsule 40 mg PO DAILY Qty: 90 3RF trazodone 50 mg tablet 100 mg PO QHS PRN (Reason: sleep) Qty: 180 4RF rosuvastatin 10 mg tablet 10 mg PO DAILY Qty: 90 4RF disulfiram 250 mg tablet 250 mg PO DAILY fluoxetine 20 mg capsule 20 mg PO DAILY Qty: 90 3RF Rx Instructions: take with 40 mg fluoxetine for a total 60 mg daily. baclofen 10 mg tablet 20 mg PO TID PRN (Reason: muscle spasm) Qty: 90 3RF clonazepam 0.5 mg tablet 0.5 mg PO TID 30 Days Qty: 90 2RF ondansetron HCl 4 mg tablet 4 mg PO Q8H PRN (Reason: nausea and vomiting) Qty: 30 0RF Wegovy 2.4 mg/0.75 mL pen injector 2.4 mg subcut QWEEK Qty: 3 3RF Discontinued tramadol 50 mg tablet 50 mg PO TID PRN (Reason: pain) Qty: 30 1RF Discharge Instructions Additional Instructions: Surgery: Left hip endoscopy with iliotibial band release and trochanteric bursectomy Activity: Weightbearing as tolerated. May use crutches or walker as needed for a few days. Gradually advance to full range of motion and activity over the next few weeks. A physical therapy prescription will be provided separately in the office at follow up if needed. Prescriptions: Aspirin 81 mg take 1 daily to prevent a blood clot for 2 weeks Ibuprofen 800 mg take 1 every 12 hours with a meal as needed for moderate pain Oxycodone 5 mg take 1-2 every 4-6 hours as needed for severe pain You may use poye-fzv-dnxlxcv Tylenol (acetaminophen) as needed for mild pain. These pain medications may be taken all at once or in different combinations as needed. Also, recommend Colace (docusate) as a stool softener as surgery and pain medicine cause constipation. You may try pfvj-vxz-mbiuokt diphenhydramine (Benadryl) 25-50 mg nightly as a sleep aid Dressings: Leave dressing in place for 3 days. May then remove and leave open to air or cover incisions with Band-Aids. Leave the sticky Steri-Strips in place until they fall off or remove them after you shower. May shower after 5 days. Follow-up: 10-[address] Jerome You may take off the leg compression stockings this evening at home. You may also leave them on a few days longer if you have a history of leg swelling or edema. Let us know right away if you develop any redness, drainage, fevers, chest pain, or trouble breathing. Do not drink alcohol or drive for at least 24 hours after anesthesia. Please call the office during business hours with any questions or concerns. Stand Alone Forms: Anesthesia Discharge InstBindu, Devaughn Perez (DSU) Discharge Orders Discharge Orders: Discharge Order (Routine); Ordered 04/15/23 Ordered By: Kenia Rubio Discharge Data Discharge Date/Time-TO BE ENTERED AT DEPARTURE: 04/15/23 12:11 DS: Diagnosis Discharge Diagnosis (1) Trochanteric bursitis of left hip: Status: Acute
[2023-04-15] MEDS: Lactated Ringers 1,000 ML 30 ML IV (07:20)
--- NOTE | 2023-04-15 07:31 | W.ANESPRE ---
General Info Date of Service Date Performed: 04/15/23 Height: 5 ft 7 in Weight: 77.5 kg Body Mass Index (BMI): 26.7 Surgical Procedure: Operation Date: 04/15/23 08:20 Proposed Procedure Side Surgeon p Endoscopic Iliotibial Band Release w/ Trochanteric Bursectomy Left Jamil Jerome MD Pre-Op Diagnosis Post-Op Diagnosis left hip trochanteric bursitis and iliotibial band syndrome Meds Allergies and Home Medications Allergies Allergy/AdvReac Type Severity Reaction Status Date / Time aspirin AdvReac Intermediate Ringing in Verified 04/15/23 06:31 ears Home Medication Medication Instructions Recorded trazodone 50 mg tablet 100 mg (2 x 50 mg) PO QHS PRN 08/31/22 sleep #180 tabs rosuvastatin 10 mg tablet 10 mg PO DAILY #90 tabs 10/14/22 disulfiram 250 mg tablet 250 mg PO DAILY 12/08/22 semaglutide (weight loss) 2.4 2.4 mg (0.75 mL) subcut QWEEK #3 mL 12/21/22 mg/0.75 mL subcutaneous pen injector (Michele) fluoxetine 20 mg capsule 20 mg PO DAILY #90 caps 01/04/23 fluoxetine 40 mg capsule 40 mg PO DAILY #90 caps 02/01/23 baclofen 10 mg tablet 20 mg (2 x 10 mg) PO TID PRN 03/07/23 muscle spasm #90 tabs clonazepam 0.5 mg tablet 0.5 mg PO TID Anxiety 30 days #90 04/14/23 tabs ondansetron HCl 4 mg tablet 4 mg PO Q8H PRN nausea and 04/14/23 vomiting #30 tabs aspirin 81 mg capsule 81 mg PO DAILY prevent blood clot 04/15/23 14 days #14 caps ibuprofen 800 mg tablet 800 mg PO BID PRN PRN moderate 04/15/23 pain and swelling #30 tabs oxycodone 5 mg tablet 5 - 10 mg (1 - 2 x 5 mg) PO .q4-6h 04/15/23 PRN severe pain #18 tabs Current Visit Medications: Current Medications Generic Name Dose Route Start Last Admin Trade Name Freq PRN Reason Stop Dose Admin Ringer's Solution 1,000 mls @ 30 mls/hr 04/15/23 06:00 04/15/23 07:20 IV 05/14/23 23:59 30 mls/hr INFUSION MANNY Administration Cefazolin Sodium/Dextrose 2 gm in 50 mls @ 100 mls/hr 04/15/23 06:00 Ancef Duplex IVPB 05/14/23 23:59 PREOP MANNY IV Miscellaneous Supplies 1 each 04/15/23 06:00 Iv Access IV 05/14/23 23:59 DIRECTED MANNY Sodium Chloride 0 ml 04/15/23 06:00 Normal Saline Flush 10 Ml Syr IV 05/14/23 23:59 PRN PRN Sodium Chloride 0 ml 04/15/23 06:00 Normal Saline 10 Ml Vial IJ 05/14/23 23:59 DIRECTED PRN Sterile Water 0 ml 04/15/23 06:00 Water,Injection,Sterile 10 Ml Vial IJ 05/14/23 23:59 DIRECTED PRN PFSH Active Problems Active Problems: Problem Status Onset Code Trochanteric bursitis of left hip M70.62 Trochanteric bursitis, right hip M70.61 Anxiety F41.9 Depressive disorder F32.9 Smoker F17.200 Hyperlipidemia E78.5 Osteoarthritis of left knee M17.12 Osteoarthritis of right knee M17.11 Trochanteric bursitis of both hips M70.61, M70.62 Obesity E66.9 Bulimia F50.2 Internal derangement of right knee M23.91 Constipation K59.00 Iliotibial band syndrome of both sides M76.31, M76.32 Medical History Medical History MERARY on CPAP History of alcoholism Diverticulosis Colon polyp PTSD (post-traumatic stress disorder) Pt. states no potential triggers Grade II hemorrhoids (02/10/17) Surgical History Surgical History Patellofemoral arthritis of right knee S/P R PATELLOFEMORAL REPLACEMENT 01/07/2021 Patellofemoral arthritis of left knee S/P LEFT PATELLOFEMORAL REPLACEMENT 01/07/2021 Status post excision of Orozco's neuroma (12/04/19) H/O colonoscopy (~03/2019) Hyperplastic polyp. History of arthroscopic knee surgery Bilateral H/O hysterectomy with oophorectomy Rotator Cuff Repair (~1999) right Tobacco Smoking/Tobacco Use Status: Current every day Tobacco Type: cigarettes Years smoked: 20 Passive smoking exposure: Yes Second hand exposure: Yes Alcohol Alcohol Intake: former Substance Use Substance use: Never Substance use type: does not use Vital Signs and Lab Results Vital Signs Most Recent Vital Signs in EMR: Most Recent Vital Signs Temp Pulse Resp BP Pulse Ox 37 C 92 H 17 132/80 95 04/15/23 06:43 04/15/23 06:43 04/15/23 06:43 04/15/23 06:43 04/15/23 06:43 Lab Results Blood Type / Crossmatch: No Data to Display Complete Blood Count: No Data to Display Complete Metabolic Panel: No Data to Display Liver Function Panel: No Data to Display Coagulation Panel: No Data to Display Cardiac Panel: No Data to Display Arterial Blood Gas: No Data to Display Venous Blood Gas: No Data to Display Pancreas Panel: No Data to Display Thyroid Panel: No Data to Display Infectious Disease: No Data to Display Blood Cultures: No Data to Display Toxicology Panel: No Data to Display Anesthesia Assessment and Plan Anesthesia History Personal History: No History of Anesthesia Complications Family History: No Family History of Anesthesia Complications Exercise Tolerance Exercise Tolerance: Metabolic Equivalents>4 Pertinent Negatives Pertinent Negatives: No Major Cardiovascular Symptoms or Complaints, No Major Pulmonary Symptoms or Complaints and No History of CVA/TIA Cardiac & Pulmonary Exam Cardiac Exam: Normal S1/S2 Heart Sounds Pulmonary Exam: Clear Bilateral Breath Sounds Implantable Cardiac Device Does patient have a Pacemaker or an ICD?: No Airway Exam Known Difficult Airway: No Mallampati Class: 2 Mouth Opening: Normal (> 3cm) Thyromental Distance: Greater than 3 cm Neck Range of Motion: Full ROM Neck Circumference: Normal Teeth Condition: Normal Dentition and Generalized Poor Dentition (none loose per patient) ASA Classification ASA Score: ASA 2 Emergency Case?: No NPO Status NPO Status: NPO Clears >2 hours, Solids >8 hours Anesthesia Plan Resuscitation Status: Full Code Anesthesia Technique: General Anesthesia Airway Planned: LMA Monitors Used: Standard Monitors
[2023-04-15] MEDS: Tranexamic Acid 1,000 MG/10 ML VIAL 1000 MG (08:02)
[2023-04-15] MEDS: Bupivacaine 0.25% Pres-Free 30 ML VIAL (08:24)
[2023-04-15] MEDS: EPINEPHrine 10 MG/10 ML ML (08:50)
--- NOTE | 2023-04-15 09:11 | DI.RAD_ITS ---
Exam(s) XR HIP LT IN OR EXAM: XR HIP LT IN OR CLINICAL HISTORY: L hip trochanteric bursitis/iliotibial band syndr TECHNIQUE: 2D and realtime digital imaging was performed. CONTRAST MATERIAL: Refer to procedure report. COMPARISON: CR XR HIP PELVIS ADULT BL from 01/05/2023 FINDINGS: Fluoroscopy was provided for Dr. Jerome during treatment of trochanteric bursitis/iliotibial band sy ndrome. Please refer to the procedure report for complete details. Ka,r=1.15 mGy IMPRESSION: RADIATION DOSE DELIVERED:
--- NOTE | 2023-04-15 09:13 | ROE_ITS ---
Date of service: 04/15/23 Time of Service: 08:30 Operative Note Operative Note DATE OF PROCEDURE: 04/15/23 PRE-OP DIAGNOSIS: Left hip 1. Iliotibial band syndrome 2. Trochanteric bursitis POST-OP DIAGNOSIS: same PROCEDURE: Left hip endoscopic 1. Iiliotibial band release, CPT# 85531 2. Trochanteric bursectomy, CPT# 00021 SURGEON: Jamil Jerome ANESTHESIA TYPE: Local By Surgeon and General LMA/ETT Refer to Anesthesia Record ESTIMATED BLOOD LOSS: 5 COMPLICATIONS: None Patient was transported to: PACU Patient's condition: stable Indications: Please see complete medical record for details. Findings: Thickened iliotibial band. Abundant inflamed trochanteric bursitis. No significant gluteal tendon tear. Procedure Description: In the operating room, general anesthesia was induced. The patient was positioned supine on the [place] operating room table. All bony prominences were well-padded. Preoperative antibiotics and 1g TXA were administered. The Left hip was prepped and draped in the usual sterile fashion. The correct patient, procedure, and side of the procedure were all verified prior to incision. 30 cc of 0.25% bupivacaine containing epinephrine was infiltrated about the subcutaneous tissues for the planned anterior lateral and distal anterolateral portals as well as deeply over the greater trochanter. A knife was used to incise the skin for the anterior lateral and distal anterolateral portals followed by blunt dissection subcutaneously. Under fluoroscopic guidance, a switching stick and arthroscope were inserted localizing the iliotibial band over the greater trochanter. Blunt dissection and the mechanical shaver were used to resect fat and overlying tissue about the center of the iliotibial band and carefully expose the anterior and posterior margins. Once there was adequate exposure of the IT band, the greater trochanter was again localized under fluoroscopic guidance with a spinal needle inserted through the skin down to bone. This central area was marked using the radiofrequency ablator. A [place] blade was brought in and used to create a 2 cm longitudinal incision in line with the IT band fibers as well as extending it in a cruciate fashion with 2 cm incisions anteriorly and posteriorly. The radiofrequency ablator was used to achieve hemostasis. The mechanical shaver was then used to debride the IT band released edges exposing the trochanteric bursa. The mechanical shaver was then used to excise the trochanteric bursa taking care to protect musculature about the margins of the greater trochanter as well as neurovascular structures especially posteriorly. There was excellent visualization of the vastus lat eralis as well as gluteus medius confirming appropriate bursa excision. The hip was brought through range of motion including internal and external rotation and there was no impinging iliotibial band tissue or remaining pathologic bursa. The viewing and working portals were switched and appropriate IT band release, trochanteric bursa excision, and hemostasis confirmed. Suction was used to remove fluid from the endoscopic space. The portals were closed using 3-0 Monocryl in a buried fashion. Steri-Strips were applied over the incisions followed by Xeroform, 4 x 4 gauze, an ABD pad, and secured with tape. The patient awoke from anesthesia without complication and was transferred to the recovery room in a stable condition.
[2023-04-15] MEDS: HYDROmorphone 2 MG/ML SYR IVP ×4 (09:16→09:53)
--- NOTE | 2023-04-15 10:14 | W.ANESPOSTOP ---
Postoperative Evaluation Date, Time and Location Date Performed: 04/15/23 Time Performed: 10:01 Patient Location: PACU Vital Signs Most Recent Imported Vital Signs: Most Recent Vital Signs Temp Pulse Resp BP Pulse Ox 36.6 C 77 16 136/73 95 04/15/23 09:55 04/15/23 09:55 04/15/23 09:55 04/15/23 09:55 04/15/23 09:55 Pain Score Most Recent Pain Score: Most Recent Pain Score Pain Level 5 04/15/23 09:55 Assessment Mental Status: Awake (Alert & Oriented to Patient Baseline) Airway and Respiratory Function: Patent airway with normal (patient baseline) respiratory exam Cardiovascular Function: Hemodynamically Stable Hydration Status: Adequately Hydrated Nausea & Vomiting: No Nausea or Vomiting Pain: Pain is tolerable per patient Peripheral Nerve Block: Patient did not receive a nerve block
[2023-04-15] MEDS: oxyCODONE 5 MG TAB PO (10:35)
== END 2023-04-15 12:11 | disposition home or self-care (01) ==
PROVIDERS: PCP Nurse Practitioner Family; Visit Provider Student in an Organized Health Care Education/Training Program
PROC: (CPT 29863; principal; 2023-04-15 08:00)
DX: M70.62 Trochanteric bursitis, left hip (principal); M76.32 Iliotibial band syndrome, left leg
CPT/HCPCS: 27062; 27305; 73501; J0131; J1100; J1170; J1885; J2001; J2250; J2405; J2704; J3010

== ENCOUNTER 2023-08-11 05:13 | Outpatient (CLI) | payer BC, SELFPAY ==
[2023-08-11 12:22] LABS: HCT 38.8 % (36.0-46.0); HGB 13.2 g/dL (11.2-15.7); MCH 32.4 pg (27.0-33.0); MCV 95 fL (80-95); MPV 11.3 fL (8.0-11.0); Platelet Count 243 10^3/uL (130-400); RBC 4.08 10^6/uL (3.93-5.22); RDW 13.3 % (11.7-14.6); RDW-SD 47.4 fL; WBC 6.33 10^3/uL (4.4-10.8)
[2023-08-11 12:36] LABS: Anion Gap 10.4 mmol/L (3-11); BUN 11 mg/dL (7-18); CO2 26.6 mmol/L (21.0-32.0); CREATININE 0.8 mg/dL (0.55-1.02); Calcium 8.6 mg/dL (8.5-10.1); Calculated LDL 56 mg/dL (<100); Chloride 108 mmol/L (98-107); Cholesterol 117 mg/dL (<200); Glucose 83 mg/dL (74-106); HDL Cholesterol 45 mg/dL (40-60); Potassium 3.9 mmol/L (3.5-5.1); Sodium 145 mmol/L (136-145); Triglyceride 80 mg/dL (<150)
== END 2023-08-11 05:14 | disposition home or self-care (01) ==
LOC: LOS 05:14
PROVIDERS: PCP Nurse Practitioner Family; Visit Provider Nurse Practitioner Family
DX: Z00.00 Encounter for general adult medical examination without abnormal findings (principal); E78.5 Hyperlipidemia, unspecified; F17.210 Nicotine dependence, cigarettes, uncomplicated; K59.00 Constipation, unspecified
CPT/HCPCS: 36415; 80048; 80061; 85027

== ENCOUNTER 2023-12-28 01:14 | Outpatient (CLI) | payer BC, SELFPAY ==
--- NOTE | 2023-12-28 08:45 | DI.CTLCSR_ITS ---
Exam(s) CT CHEST LUNG CANCER SCREEN EXAM: CT CHEST LUNG CANCER SCREEN CLINICAL HISTORY: Screening for lung cancer,current smoker, f17.210. TECHNIQUE: Imaging Protocol: Low Dose Technique CONTRAST MATERIAL: None COMPARISON: CT CT CHEST LUNG CANCER SCREEN from 12/07/2022 FINDINGS: CHEST: LUNGS: There is stable appearance of the 4 mm benign-appearing fissure based nodule in the left lung as well as continued stability in the appearance of the 2 tiny subpleural nodules in the lateral aspe ct of the left upper lobe. There are no ominous pulmonary nodules. There are no confluent infiltrate s. No pleural effusions. MEDIASTINUM: There is no obvious hilar nor mediastinal adenopathy. The size of the hiatal hernia sig nificantly diminished. There is no obvious hiatal hernia evident at this time. CARDIAC: Heart size is normal. There is no pericardial effusion.Caliber of the thoracic aorta is wit hin normal limits. OTHER: No significant adrenal masses. No splenomegaly. OSSEOUS: No significant osseous lesions.No fractures.. IMPRESSION: 1. Stable small benign-appearing left lung nodules. No new concerning lung nodules. 2. No pleural effusions nor intrathoracic adenopathy. Hiatal hernia significantly decreased in size. There is presently no obvious hiatal hernia seen. 3. Lung RADS Cat 2 - Benign Appearance / Behavior: Nodules with a very low likelihood of becoming a c linically active cancer due to size or lack of growth Lung-RADS 1.0 CATEGORIES: Category 0 - Prior chest CT exam(s) being located for comparison. Category 1 - Annual screening in 12 months. No nodules or definitely benign nodules. Category 2 - Annual screening in 12 months. Benign appearance. Nodules with low likelihood of becomin g active cancer. Category 3 - 6-month follow-up. Probably benign. Short-term follow-up suggested. Nodules with low lik elihood of becoming active cancer. Category 4A - 3-month follow-up and CT/PET if >8 mm in size. Suspicious finding. Findings which requi re additional testing. Category 4B - Findings which require additional testing and tissue sampling. Category 4X - Category 3 or 4 nodules with additional features or imaging findings that increases the suspicion of malignancy. Modifier S- Potentially clinically significant findings (non lung cancer) RADIATION DOSE DELIVERED: Total DLP DATA REPOSITORY: All CT scans at this facility are submitted to the National Radiology Data Registry (NRDR) Dose Index Registry (DIR) with the [employer] (ACR). RADIATION OPTIMIZATION: All CT scans at this facility use at least one of these dose optimization te chniques: automated exposure control; mA and/or kV adjustment per patient size (includes targeted exa ms where dose is matched to clinical indication); or iterative reconstruction.
--- NOTE | 2023-12-28 15:31 | DI.MAMMO_ITS ---
Exam(s) MAMMO SCREENING EXAM: MAMMO SCREENING CLINICAL HISTORY: screening,z12.39 TECHNIQUE: Bilateral full field digital CC and MLO mammographic images were obtained with 3D tomosyn thesis and utilizing computer aided detection (CAD). COMPARISON: Available for comparison. FINDINGS: Masses/Architectural Distortion: Stable left breast nodules. No new nodules. No areas of architectu ral distortion. Microcalcifications: No suspicious pleomorphic-type are seen. Skin Thickening/Nipple Retraction: None. IMPRESSION: 1. No significant interval change with no specific features of malignancy noted. 2. Unless there is more urgent need, screening mammography is recommended, as per [employer] guidelines. BI-RADS Category 2 - Benign Findings Breast Density - Category B - Scattered areas of fibroglandular density Breast density category C or D implies that the patient has dense breast tissue. Dense breast tissue is very common and is not abnormal but dense breast tissue can make it harder to find cancer on a ma mmogram. Also, dense breast tissue may increase their breast cancer risk. This information about the result of the mammogram report was provided to the patient to raise their awareness. Use this report when you speak with the patient about their risks for breast cancer, which includes their family hist ory. At that time, you may recommend for more screening tests (Ultrasound or MRI) as they might be us eful based on their risk. A negative radiographic report should not delay biopsy if a dominant or clinically suspicious mass is present. Up to ten percent of cancers are not identified on mammography. A negative report may reinforce clinical impression. Adenosis and dense breasts may obscure an underlying neoplasm. False positive reports average 6 to 10%. Patient will receive a letter notifying them of these results.
== END 2023-12-28 01:34 ==
LOC: DI 01:14
PROVIDERS: PCP Nurse Practitioner Family; Visit Provider Nurse Practitioner Family
DX: Z12.31 Encounter for screening mammogram for malignant neoplasm of breast (principal); F17.210 Nicotine dependence, cigarettes, uncomplicated; Z12.2 Encounter for screening for malignant neoplasm of respiratory organs
CPT/HCPCS: 71271; 77063; 77067

== ENCOUNTER 2024-02-10 02:25 | Outpatient (CLI) | payer MEDICAID, SELFPAY ==
[2024-02-10 15:57] LABS: Vitamin B12 714 pg/mL (193-986)
[2024-02-15 14:39] LABS: Thiamine (Vitamin B1), WB 83 nmol/L (70-180)
== END 2024-02-10 02:26 | disposition home or self-care (01) ==
LOC: LBO 02:25
PROVIDERS: PCP Nurse Practitioner Family; Visit Provider Family Medicine
DX: G93.32 Myalgic encephalomyelitis/chronic fatigue syndrome (principal)
CPT/HCPCS: 36415; 82607; 84425

== ENCOUNTER 2024-03-07 03:27 | Outpatient (CLI) | payer MEDICAID, SELFPAY ==
[2024-03-08 09:45] LABS: Varicella IgG Antibody Positive (See Note)
== END 2024-03-07 03:28 | disposition home or self-care (01) ==
LOC: LOS 03:27
PROVIDERS: PCP Nurse Practitioner Family; Visit Provider Nurse Practitioner Family
DX: Z00.00 Encounter for general adult medical examination without abnormal findings (principal)
CPT/HCPCS: 36415; 86787

== ENCOUNTER 2024-05-21 02:12 | Outpatient (CLI) | payer MEDICAID, SELFPAY ==
--- NOTE | 2024-05-21 13:42 | DI.RAD_ITS ---
Exam(s) XR FOOT LT COMPLETE EXAM: XR FOOT LT COMPLETE CLINICAL HISTORY: Left foot pain,M79.672. TECHNIQUE: 2D digital imaging was performed of the left foot. Three images were obtained. AP, obli que and lateral views were obtained. COMPARISON: No exams were available for comparison FINDINGS: BONES: No acute fracture is present. No bony destructive lesion is seen. JOINTS: No dislocation present. At the calcaneocuboid joint there is joint space narrowing and subcho ndral sclerosis. Subchondral cysts are seen on the cuboid site of the joint. Small osteophytes are seen at the lateral aspect of the joint space. SOFT TISSUE: Normal. IMPRESSION: Arthrosis of the calcaneocuboid joint. DATA REPOSITORY: RADIATION DOSE DELIVERED:
--- NOTE | 2024-05-21 13:42 | DI.RAD_ITS ---
Exam(s) XR FOOT RT COMPLETE EXAM: XR FOOT RT COMPLETE CLINICAL HISTORY: Right foot pain,M79.672. TECHNIQUE: 2D digital imaging was performed of the right foot. Three images were obtained. AP, obl ique and lateral views were obtained. COMPARISON: No exams were available for comparison FINDINGS: BONES: No acute fracture is present. No bony destructive lesion is seen. JOINTS: No dislocation present. There is a large erosion at the lateral aspect of the head of the 3rd metatarsal bone. There is an erosion seen in the base of the proximal phalanx of the 4th toe and a smaller erosion seen in the head of the 4th metatarsal bone. There is a lucency seen in the medial a spect of the base of the proximal phalanx of the 4th toe. This may be chronic. At the calcaneocuboi d joint there is joint space narrowing and small osteophytes. Mild subchondral sclerosis and small s ubchondral cysts are seen. SOFT TISSUE: Normal. IMPRESSION: 1. Moderate arthrosis of the calcaneocuboid joint. 2. Erosions involving the 3rd and 4th metatarsophalangeal joints. This can be seen with an inflammat ory arthrosis. Please correlate with any prior examinations and any prior surgical or traumatic hist ory. Infection cannot be entirely excluded. If clinically appropriate, MRI may be considered for fu rther evaluation. DATA REPOSITORY: RADIATION DOSE DELIVERED:
== END 2024-05-21 02:32 ==
LOC: DI 02:12
PROVIDERS: PCP Nurse Practitioner Family; Visit Provider Podiatrist
DX: M19.071 Primary osteoarthritis, right ankle and foot (principal); M19.072 Primary osteoarthritis, left ankle and foot
CPT/HCPCS: 73630

== ENCOUNTER 2024-06-07 10:20 | Outpatient (CLI) | payer MEDICAID, SELFPAY ==
--- NOTE | 2024-06-07 08:45 | DI.RAD_ITS ---
Exam(s) XR KNEE LT 4V AP,LAT,GOPAL,PAT EXAM: XR KNEE LT 4V AP,LAT,GOPAL,PAT CLINICAL HISTORY: LEFT KNEE PAIN. TECHNIQUE: 2D digital imaging was performed. COMPARISON: CR XR KNEE LT 2V AP,LAT from 01/22/2021 CR XR KNEE RT 4V AP,LAT,GOPAL,PAT from 10/14/2022 FINDINGS: Four views Fellow femoral compartment prosthesis remain stable with no fracture or loosening evident. No eviden ce of osteomyelitis. There is no radiographic change in the appearance of the medial lateral compartments of the left knee . There is some marginal osteophytes again noted but no significant narrowing the medial lateral com partments. No ominous osseous lesions. IMPRESSION: Stable satisfactory appearance DATA REPOSITORY: RADIATION DOSE DELIVERED:
--- NOTE | 2024-06-07 08:45 | DI.RAD_ITS ---
Exam(s) XR KNEE RT 4V AP,LAT,GOPAL,PAT EXAM: XR KNEE RT 4V AP,LAT,GOPAL,PAT CLINICAL HISTORY: RIGHT KNEE PAIN. TECHNIQUE: 2D digital imaging was performed. COMPARISON: CR XR KNEE RT 4V AP,LAT,GOPAL,PAT from 10/14/2022 CR XR KNEE LT 4V AP,LAT,GOPAL,PAT from 06/07/2024 FINDINGS: Four views Again noted is a patellofemoral compartment prosthesis which appears stable with no evidence of loose allyson nor osteomyelitis. Again noted is an anteriorly located intra-articular calcified loose body in the anterior lateral asp ect the joint, this measuring 7 by 6 by 6 mm. It is located just anterior to the lateral tibial plat eau, abutting the posterior aspect of Hoffa fat pad. No other loose intra-articular bodies evident. No prominent effusion. There is no significant narrowing of the lateral medial compartments. IMPRESSION: Stable appearance of the patellofemoral compartment prosthesis. Stable appearance of the medial lateral compartments. 7 x 6 x 6 mm calcified loose body again noted in the anterolateral aspect of the joint space, similar in size, configuration, and location when compared to images of 10/14/2022. DATA REPOSITORY: RADIATION DOSE DELIVERED:
== END 2024-06-07 10:21 | disposition home or self-care (01) ==
LOC: DIORS 10:20
PROVIDERS: PCP Nurse Practitioner Family; Visit Provider Student in an Organized Health Care Education/Training Program
DX: M25.561 Pain in right knee (principal); M25.562 Pain in left knee
CPT/HCPCS: 73564

== ENCOUNTER 2024-09-17 09:12 | Outpatient (CLI) | payer MEDICAID, SELFPAY ==
--- NOTE | 2024-09-17 08:45 | DI.RAD_ITS ---
Exam(s) XR HAND RT COMPLETE EXAM: XR HAND RT COMPLETE CLINICAL HISTORY: eval R thumb/hand pain. TECHNIQUE: 2D digital imaging was performed. COMPARISON: No exams were available for comparison FINDINGS: 3 views No evidence of fracture or subluxations. No osseous lesions nor erosions. Metacarpophalangeal joint s appear unremarkable. There are mild degenerative changes in the DIP joints of the 2nd and 3rd fingers. There are also sim ilar appearing small calcifications dorsal to the DIP joints of these 2 fingers. The IP joints of th e other fingers appear unremarkable. There are mild degenerative changes in the interphalangeal join t of the thumb and metacarpophalangeal joint of the thumb and 1st carpometacarpal joint. No significant osseous lesions. IMPRESSION: Some degenerative changes in the DIP joints of the 2nd and 3rd fingers as described above. DATA REPOSITORY: RADIATION DOSE DELIVERED:
--- NOTE | 2024-09-17 08:45 | DI.RAD_ITS ---
Exam(s) XR HAND LT COMPLETE EXAM: XR HAND LT COMPLETE CLINICAL HISTORY: eval L thumb/hand pain. TECHNIQUE: 2D digital imaging was performed. COMPARISON: CR XR HAND RT COMPLETE from 09/17/2024 FINDINGS: 3 views No evidence fracture nor osseous lesions. Metacarpophalangeal joints appear unremarkable. There is mild degenerative change in the 1st carpometacarpal joint. Proximal interphalangeal joints appear unremarkable. There are degenerative changes at the DIP joint s of the 2nd and 3rd fingers, similar to the opposite hand. However, on this (left) side there is mo re severe degenerative changes in the DIP joint of the 2nd-index finger, more so than is seen on the opposite side grade at the DIP joint of the 3rd finger there is more moderate degenerative change and there is a dorsal calcification at this level which is similar to the opposite side. The DIP joints of the other phalanges appear unremarkable. Articulations of the thumb appear unremarkable. Bone density normal. No osseous lesions. IMPRESSION: DIP joint findings at the 2nd and 3rd fingers as above. The most advanced degenerative changes in inocencio th hands it is at the DIP joint of the index finger of the left hand. DATA REPOSITORY: RADIATION DOSE DELIVERED:
== END 2024-09-17 09:13 | disposition home or self-care (01) ==
LOC: DIORS 09:12
PROVIDERS: PCP Nurse Practitioner Family; Referring Provider Nurse Practitioner Family; Visit Provider Student in an Organized Health Care Education/Training Program
DX: M18.12 Unilateral primary osteoarthritis of first carpometacarpal joint, left hand (principal); M18.11 Unilateral primary osteoarthritis of first carpometacarpal joint, right hand
CPT/HCPCS: 73130

== ENCOUNTER 2024-09-28 00:13 | Outpatient (CLI) | payer MEDICAID, SELFPAY ==
--- NOTE | 2024-09-28 10:49 | DI.RAD_ITS ---
Exam(s) XR CHEST 2V PA LATERAL EXAM: XR CHEST 2V PA LATERAL CLINICAL HISTORY: ? pneumonia,COUGH,WHEEZING,R05.9,R06.2,R06.02. TECHNIQUE: 2D digital imaging was performed. COMPARISON: CT CT CHEST LUNG CANCER SCREEN from 12/28/2023 FINDINGS: 2 views: Heart size is normal. The mediastinum is not widened. Right lung is clear. There is a small density in the left suprahilar region measuring 8 x 7 mm proje cted over the posterior aspect of the left 6 rib on the PA view. Possibly significant nodule. No other focal lung findings and no pleural effusions. IMPRESSION: 8 x 6 mm possible nodule in the left lung upper lobe suprahilar region. Recommend follow-up chest CT scan. DATA REPOSITORY: RADIATION DOSE DELIVERED:
== END 2024-09-28 00:33 ==
LOC: DI 00:14
PROVIDERS: PCP Nurse Practitioner Family; Visit Provider Nurse Practitioner Family
DX: R05.9 Cough, unspecified (principal); R06.2 Wheezing; R06.02 Shortness of breath; R91.8 Other nonspecific abnormal finding of lung field
CPT/HCPCS: 71046

== ENCOUNTER 2024-09-28 01:56 | Outpatient (CLI) | payer MEDICAID, SELFPAY ==
[2024-09-28 12:26] LABS: Abs Immature Grans 0.04 10^3/uL (0.0-0.06); Absolute Basophil Count 0.08 10^3/uL (0.0-0.2); Absolute Eosinophil Count 0.22 10^3/uL (0.0-0.7); Absolute Lymphocyte Count 3.24 10^3/uL (1.2-3.4); Absolute Monocyte Count 0.76 10^3/uL (0.1-0.8); Absolute Neutrophil Count 4.46 10^3/uL (1.2-6.7); Basophils % 0.9 %; Eosinophils % 2.5 %; HCT 36.7 % (36.0-46.0); HGB 12.3 g/dL (11.2-15.7); Immature Grans % 0.5 %; Lymphocytes % 36.8 %; MCH 29.5 pg (27.0-33.0); MCHC 33.5 % (32.0-36.0); MCV 88 fL (80-95); MPV 9.7 fL (8.0-11.0); Monocytes % 8.6 %; Neutrophils % 50.7 %; Platelet Count 422 10^3/uL (130-400); RBC 4.17 10^6/uL (3.93-5.22); RDW 15.9 % (11.7-14.6); RDW-SD 51.4 fL
[2024-09-28 12:52] LABS: Iron 44 ug/dL (50-170); Total Iron Binding Capacity 372 ug/dL (250-450); Transferrin Sat 12 % (15-50)
[2024-09-28 13:19] LABS: ALT 20 U/L (14-59); AST 16 U/L (15-37); Albumin 3.4 g/dL (3.4-5.0); Alkaline Phosphatase 70 U/L (46-116); Anion Gap 4.6 mmol/L (3-11); BUN 18 mg/dL (7-18); Bilirubin, Total 0.3 mg/dL (0.2-1.0); CO2 28.4 mmol/L (21.0-32.0); CREATININE 0.7 mg/dL (0.55-1.02); Calcium 9.4 mg/dL (8.5-10.1); Calculated LDL 67 mg/dL (<100); Chloride 105 mmol/L (98-107); Cholesterol 130 mg/dL (<200); Estimated GFR 98.34 (mL/min/1.73m2); Ferritin 19 ng/mL (8-252); Glucose 94 mg/dL (74-106); HDL Cholesterol 54 mg/dL (>or=50); Potassium 4.1 mmol/L (3.5-5.1); Sodium 138 mmol/L (136-145); Total Protein 7.6 g/dL (6.4-8.2); Triglyceride 49 mg/dL (<150); Vitamin B12 > 2000 pg/mL (193-986)
== END 2024-09-28 01:57 | disposition home or self-care (01) ==
LOC: LOS 01:56
PROVIDERS: PCP Nurse Practitioner Family; Visit Provider Nurse Practitioner Family
DX: E53.8 Deficiency of other specified B group vitamins (principal); R05.9 Cough, unspecified; R53.83 Other fatigue; R06.02 Shortness of breath; Z00.00 Encounter for general adult medical examination without abnormal findings; E78.2 Mixed hyperlipidemia; E66.9 Obesity, unspecified; F17.200 Nicotine dependence, unspecified, uncomplicated; F41.9 Anxiety disorder, unspecified; F32.9 Major depressive disorder, single episode, unspecified
CPT/HCPCS: 36415; 80053; 80061; 82607; 82728; 83540; 83550; 84443; 85025

== ENCOUNTER 2024-10-15 02:34 | Outpatient (CLI) | payer MEDICAID, SELFPAY ==
--- NOTE | 2024-10-15 08:00 | DI.CT_ITS ---
Exam(s) CT CHEST WO EXAM: CT CHEST WO CLINICAL HISTORY: new nodule seen on CXR,ABNL OF LUNG ON CT,R91.8,R91.1. TECHNIQUE: Imaging protocol: Axial computed tomography images were obtained and coronal and sagittal reformatted images were created and reviewed. Lung Computer Aided Detection (CAD) was utilized. COMPARISON: CT CT CHEST LUNG CANCER SCREEN from 12/28/2023 CR XR CHEST 2V PA LATERAL from 09/28/2024 FINDINGS: Tracheobronchial tree: Patent where visualized. No bronchiectasis is present. Pulmonary parenchyma: No focal consolidation is present. There are few small pulmonary nodules scatt ered in both lungs. The largest measure 2-3 mm. These are stable. No new pulmonary nodules are pre sent. There are calcified granuloma present. There is no nodule seen in the left lung to correspond to the chest x-ray finding from 09/28/2024. This likely represents a summation of lung markings. No architectural distortion. Mediastinum and Kinjal: No dominant adenopathy or fluid collection. The esophagus is unremarkable.There is a moderate size hiatal hernia. Thyroid gland: Unremarkable. Pleura: No effusion or pneumothorax. Heart: The heart is not dilated. Mild three-vessel coronary artery calcification is present. No vinay cardial effusion. Aorta: Thoracic aorta non-dilated. Atherosclerotic calcification is present. Upper abdomen: Gallstones are present. Left nephrolithiasis. Lymph nodes: Within normal limits. Soft tissues: Unremarkable. Bones:Within normal limits for the patient's age. IMPRESSION: 1. No finding is seen in the left lung to correspond to the finding on the chest x-ray from 09/28/2024 . The chest x-ray finding may represent a summation of lung markings. No new pulmonary nodule/mass is seen. 2. Stable tiny multiple pulmonary nodules. 3. No acute pulmonary process. 4. Cholelithiasis and left nephrolithiasis. 5. Moderate size hiatal hernia. RADIATION DOSE DELIVERED: Total DLP Total DLP DATA REPOSITORY: All CT scans at this facility are submitted to the National Radiology Data Registry (NRDR) Dose Index Registry (DIR) with the [employer] (ACR). RADIATION OPTIMIZATION: All CT scans at this facility use at least one of these dose optimization te chniques: automated exposure control; mA and/or kV adjustment per patient size (includes targeted exa ms where dose is matched to clinical indication); or iterative reconstruction.
== END 2024-10-15 02:54 ==
LOC: DI 02:34
PROVIDERS: PCP Nurse Practitioner Family; Visit Provider Nurse Practitioner Family
DX: R91.8 Other nonspecific abnormal finding of lung field (principal); N20.0 Calculus of kidney; K80.80 Other cholelithiasis without obstruction
CPT/HCPCS: 71250

== ENCOUNTER 2025-01-02 02:18 | Outpatient (CLI) | payer MEDICAID, SELFPAY ==
--- NOTE | 2025-01-02 07:30 | DI.MAMMO_ITS ---
Exam(s) MAMMO SCREENING EXAM: MAMMO SCREENING CLINICAL HISTORY: screening,z12.39 TECHNIQUE: Mammograms were interpreted according to the usual protocol including computer analysis with CAD system, tomosynthesis and C-view imaging. COMPARISON: 2015 through 2023 FINDINGS: The breasts are composed of scattered fibroglandular densities, Breast Density category B. No suspicious masses or suspicious microcalcifications are seen. No skin thickening or abnormal axillary lymph nodes are seen. There has been no significant change from prior exams. IMPRESSION: BI-RADS Category 1, Negative mammogram Yearly screening mammography is recommended. Breast Density - Category B - There are scattered areas of fibroglandular density. Breast density Category C or D implies that the patient has dense breast tissue. Dense breast tissue can make it harder to find cancer on a mammogram. Dense breast tissue is also associated with an increased risk of breast cancer. This information about the result of the mammogram report was provided to the patient to raise their awareness. Use this report when you speak with the patient about their risks for breast cancer, which includes their family history. At that time, you may recommend additional screening tests (Ultrasound or MRI) as these tests may add significant information. A negative radiographic report should not delay biopsy if a dominant or clinically suspicious mass is present. Up to ten percent of cancers are not identified on mammography. A negative report may reinforce clinical impression. Adenosis and dense breasts may obscure an underlying neoplasm. False positive reports average 6 to 10%. Patient will receive a letter notifying them of these results.
== END 2025-01-02 02:38 ==
LOC: DI 02:18
PROVIDERS: PCP Nurse Practitioner Family; Visit Provider Nurse Practitioner Family
DX: Z12.31 Encounter for screening mammogram for malignant neoplasm of breast (principal); R92.323 Mammographic fibroglandular density, bilateral breasts
CPT/HCPCS: 77063; 77067

== ENCOUNTER 2025-01-10 03:15 | Outpatient (CLI) | payer MEDICAID, SELFPAY ==
--- NOTE | 2025-01-10 06:30 | DI.RAD_ITS ---
Exam(s) XR ANKLE LT COMPLETE EXAM: XR ANKLE LT COMPLETE CLINICAL HISTORY: pain LT ANKLE,M25.572 TECHNIQUE: 2D digital imaging was performed of the left ankle. Three images were obtained. AP, lateral and oblique views were obtained. COMPARISON: CR XR FOOT LT COMPLETE from 05/21/2024 FINDINGS: BONES: No acute fracture is present. No bony destructive lesion is seen. JOINTS:The ankle mortise is normally aligned. SOFT TISSUE: Normal. IMPRESSION: Unremarkable radiographs of the left ankle. DATA REPOSITORY: RADIATION DOSE DELIVERED:
--- NOTE | 2025-01-10 06:30 | DI.RAD_ITS ---
Exam(s) XR ANKLE RT COMPLETE EXAM: XR ANKLE RT COMPLETE CLINICAL HISTORY: pain RT ANKLE,M25.571. TECHNIQUE: 2D digital imaging was performed of the right ankle. Three images were obtained. AP, lateral and oblique views were obtained. COMPARISON: CR XR FOOT RT COMPLETE from 05/21/2024 FINDINGS: BONES: No acute fracture is present. No bony destructive lesion is seen. JOINTS: The ankle mortise is normally aligned. SOFT TISSUE: Normal. IMPRESSION: Unremarkable radiographs of the right ankle. DATA REPOSITORY: RADIATION DOSE DELIVERED:
== END 2025-01-10 03:35 ==
LOC: DI 03:15
PROVIDERS: PCP Nurse Practitioner Family; Visit Provider Podiatrist
DX: M25.571 Pain in right ankle and joints of right foot (principal); M25.572 Pain in left ankle and joints of left foot
CPT/HCPCS: 73610

== ENCOUNTER 2025-01-25 15:02 | Outpatient (CLI) | payer MEDICAID, SELFPAY ==
[2025-01-25 14:31] LABS: HCT 41.7 % (36.0-46.0); HGB 14.6 g/dL (11.2-15.7); MCH 32.2 pg (27.0-33.0); MCHC 35.0 % (32.0-36.0); MCV 92 fL (80-95); MPV 9.8 fL (8.0-11.0); Platelet Count 353 10^3/uL (130-400); RBC 4.53 10^6/uL (3.93-5.22); RDW 14.6 % (11.7-14.6); RDW-SD 49.1 fL; WBC 9.95 10^3/uL (4.4-10.8)
[2025-01-25 15:13] LABS: Iron 126 ug/dL (50-170); Total Iron Binding Capacity 322 ug/dL (250-450); Transferrin Sat 39 % (15-50)
[2025-01-25 15:40] LABS: Vitamin B12 885 pg/mL (193-986)
== END 2025-01-25 15:03 | disposition home or self-care (01) ==
LOC: LOS 15:02
PROVIDERS: PCP Nurse Practitioner Family; Visit Provider Nurse Practitioner Family
DX: E53.8 Deficiency of other specified B group vitamins (principal); D50.9 Iron deficiency anemia, unspecified
CPT/HCPCS: 36415; 85027; 82607; 83540; 83550

== ENCOUNTER 2025-05-15 09:03 | Outpatient (REF) | payer MEDICAID, SELFPAY ==
--- NOTE | 2025-05-15 08:32 | SKI_PTH ---
PATIENT: Belem Kebede LOC: [facility] U#:[id number] AGE/SX: 60/F ROOM: RE05/15/[address]: Huang Coleman MD : 1965 BED: DIS: 05/15/2025 SPEC #: [id number] RECD: 05/15/25 17:15 STATUS: RONAK UREÑA #: [id number] DEV: 05/15/25 08:[address]: Huang Coleman DEPT: Surgical Specimen RECD BY: Felicitas Carrasco ENTERED: 05/15/25 17:16 SP TYPE: ABEBE LEE DR: Tabitha Menendez, CHILD THERAPIST Tissues: 1 - SKIN BIOPSY(SHAVE/PUNCH) Procedures: SKIN LEVEL 4 Comments: [id number]
== END 2025-05-15 09:04 | disposition home or self-care (01) ==
LOC: LBN 09:03
PROVIDERS: PCP Nurse Practitioner Family; Visit Provider Otolaryngology
DX: L57.0 Actinic keratosis (principal)
CPT/HCPCS: 88305